=== PATIENT | female | born 1985 | race Caucasian/White ===

== ENCOUNTER 2017-05-24 13:57 | Emergency (ER) | payer SELFPAY ==
[2017-05-24] MEDS ORDERED: NA CHLORIDE 0.9% 1,000 ML ONE (14:53)
[2017-05-24 14:58] LABS: Absolute Lymphocytes (CBC) 1.4 K/uL (0.7-4.9); Absolute Monocytes 0.3 K/uL (0.1-1.3); Basophils % 0.7 % (0-1.3); Lymphocytes % 23.8 % (15.3-44.8); MCH 29.8 pg (27.0-35.0); MCV 91.8 fL (80-100); MPV 10.1 fL (7.6-11.3); Monocytes % 5.6 % (3.3-12.3); RBC Red Blood Cell Count 4.58 M/uL (3.86-4.86)
[2017-05-24 15:03] LABS: Potassium 4.8 mEq/L (3.6-5.0)
--- NOTE | 2017-05-24 15:47 | EDPHYS ---
Physician Documentation [facility] Name: Tamy Bradshaw Age: 31 yrs Sex: Female : 1985 Arrival Date: 05/24/2017 Time: 13:57 Bed 6 Private MD: ED Physician Micheal Encarnacion HPI: 05/24 15:41 This 31 yrs old Female presents to ER via Wheelchair with complaints of gs Seizure. 15:41 The patient presents after having a single isolated seizure. Character of seizure(s): gs Motor activity: focal activity, blank stare, Incontinence: none. Seizure onset: just prior to arrival. Seizure Hx: Last seizure: The patient's last seizure was approximately 1 month(s) ago. Current symptoms: Currently, the patient is not experiencing any symptoms. The patient has experienced similar episodes in the past, a few times. Historical: - Allergies: 14:15 NKA; ss - Home Meds: 14:15 None [Active]; ss - PMHx: 14:15 Seizures; ss - PSHx: 14:15 Cholecystectomy; D \T\ C; ss - Immunization history:: Adult Immunizations unknown. - Social history:: Smoking status: Patient uses tobacco products, smokes one-half pack cigarettes per day. ROS: 15:41 All other systems are negative. gs 15:47 Psych: Positive for anxiety, insomnia. gs Exam: 15:41 Head/Face: Normocephalic, atraumatic. Eyes: Pupils equal round and reactive to light, gs extra-ocular motions intact. Lids and lashes normal. Conjunctiva and sclera are non-icteric and not injected. Cornea within normal limits. Periorbital areas with no swelling, redness, or edema. Neck: Trachea midline, no thyromegaly or masses palpated, and no cervical lymphadenopathy. Supple, full range of motion without nuchal rigidity, or vertebral point tenderness. No Meningismus. Chest/axilla: Normal chest wall appearance and motion. Nontender with no deformity. No lesions are appreciated. Cardiovascular: Regular rate and rhythm with a normal S1 and S2. No gallops, murmurs, or rubs. Normal PMI, no JVD. No pulse deficits. Respiratory: Lungs have equal breath sounds bilaterally, clear to auscultation and percussion. No rales, rhonchi or wheezes noted. No increased work of breathing, no retractions or nasal flaring. Abdomen/GI: Soft, non-tender, with normal bowel sounds. No distension or tympany. No guarding or rebound. No evidence of tenderness throughout. Back: No spinal tenderness. No costovertebral tenderness. Full range of motion. Skin: Warm, dry with normal turgor. Normal color with no rashes, no lesions, and no evidence of cellulitis. MS/ Extremity: Pulses equal, no cyanosis. Neurovascular intact. Full, normal range of motion. Neuro: Awake and alert, GCS 15, oriented to person, place, time, and situation. Cranial nerves II-XII grossly intact. Motor strength 5/5 in all extremities. Sensory grossly intact. Cerebellar exam normal. Normal gait. 15:41 Constitutional: The patient appears alert, awake. 15:41 ENT: Mouth: Lips: healing laceration sutures in place. Vital Signs: 14:15 BP 109 / 67; Pulse 117; Resp 15; Temp 97.7(O); Pulse Ox 99% on R/A; Weight 70.31 kg; ss Height 5 ft. 11 in. (180.34 cm); Pain 0/10; 15:15 BP 110 / 68; Pulse 88; Resp 15; Pulse Ox 100% on R/A; Pain 0/10; hb 14:15 Body Mass Index 21.62 (70.31 kg, 180.34 cm) ss MDM: 14:23 Patient medically screened. 15:41 Differential diagnosis: drug overdose, cardiac arrhythmia, seizure. Data reviewed: vital signs, nurses notes. Response to treatment: the patient's symptoms have resolved after treatment, and as a result, I will discharge patient. 05/24 14:24 Order name: CBC with Diff 05/24 14:24 Order name: Basic Metabolic Panel 05/24 14:25 Order name: CBC with Automated Diff; Complete Time: 15:40 EDMS 05/24 14:25 Order name: Basic Metabolic Panel; Complete Time: 15:40 EDMS 05/24 15:49 Order name: EKG Electrocardiogram EDMS Administered Medications: 14:45 Drug: NS 0.9% 1000 ml Route: IV; Rate: 1 bolus; Site: right wrist; aj Disposition: 05/24/17 15:46 Discharged to Home. Impression: Epilepsy and recurrent seizures. - Condition is Stable. - Discharge Instructions: Seizure, Adult. - Prescriptions for Valium 5 mg Oral Tablet - take 1 tablet by ORAL route every 8 hours As needed; 10 tablet. - Medication Reconciliation Form, Thank You Letter, Antibiotic Education, Prescription Opioid Use form. - Follow up: Private Physician; When: 2 - 3 days; Reason: If symptoms return. Signatures: Dispatcher [employer] Lisa Beaulieu RN RN aj Smirch, Shelby, RN RN ss Baxter, Heather, RN RN hb Starr, Gregory, MD MD
--- NOTE | 2017-05-24 15:47 | ER ---
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 On arrival, pt is awake, drowsy. Pt reports a history of seizures, but does not take any medication. Transition of care: patient was not received from another setting of care. Onset of symptoms was May 24, 2017. Care prior to arrival: None. 14:14 Method Of Arrival: Wheelchair ss 14:14 Acuity: ASHLEY 3 ss Historical: - Allergies: 14:15 NKA; ss - Home Meds: 14:15 None [Active]; ss - PMHx: 14:15 Seizures; ss - PSHx: 14:15 Cholecystectomy; D \T\ C; ss - Immunization history:: Adult Immunizations unknown. - Social history:: Smoking status: Patient uses tobacco products, smokes one-half pack cigarettes per day. Screenin:45 Abuse screen: Denies threats or abuse. Denies injuries from another. Nutritional aj screening: No deficits noted. Tuberculosis screening: No symptoms or risk factors identified. Fall Risk None identified. Assessment: 14:45 General: Appears in no apparent distress. comfortable, Behavior is calm, cooperative, aj appropriate for age. Pain: Denies pain. Neuro: Level of Consciousness is awake, alert, obeys commands, Oriented to person, place, time, situation. Neuro: Seizure activity reported prior to arrival. Respiratory: Airway is patent Respiratory effort is even, unlabored, Respiratory pattern is regular, symmetrical. Derm: Skin is intact, is healthy with good turgor, Skin is pink, warm \T\ dry. normal. 15:45 Reassessment: Patient appears in no apparent distress at this time. Patient and/or hb family updated on plan of care and expected duration. Pain level reassessed. Patient is alert, oriented x 3, equal unlabored respirations, skin warm/dry/pink. Patient denies pain at this time. Patient states feeling better. Patient states symptoms have improved. Vital Signs: 14:15 BP 109 / 67; Pulse 117; Resp 15; Temp 97.7(O); Pulse Ox 99% on R/A; Weight 70.31 kg; Height 5 ft. 11 in. (180.34 cm); Pain 0/10; 15:15 BP 110 / 68; Pulse 88; Resp 15; Pulse Ox 100% on R/A; Pain 0/10; hb 14:15 Body Mass Index 21.62 (70.31 kg, 180.34 cm) ED Course: 13:57 Patient arrived in ED. as 14:07 Micheal Encarnacion MD is Attending Physician. 14:15 Triage completed. 14:15 Arm band placed on right wrist. 14:36 EKG done, by civil cad tech. reviewed by Micheal Encarnacion MD. 14:45 Lisa Reddy, RN is Primary Nurse. 14:45 Patient has correct armband on for positive identification. Bed in low position. Call aj light in reach. Side rails up X2. Seizure precautions initiated. 14:45 Inserted saline lock: 20 gauge in right wrist, using aseptic technique. 16:03 No provider procedures requiring assistance completed. IV discontinued, intact, hb bleeding controlled, No redness/swelling at site. Pressure dressing applied. Administered Medications: 14:45 Drug: NS 0.9% 1000 ml Route: IV; Rate: 1 bolus; Site: right wrist; Outcome: 15:46 Discharge ordered by . 16:03 Discharged to home ambulatory. hb 16:03 Condition: stable 16:03 Discharge instructions given to patient, Instructed on discharge instructions, follow up and referral plans. medication usage, Demonstrated understanding of instructions, follow-up care, medications, Prescriptions given X 1. 16:04 Patient left the ED. hb Signatures: Lisa Reddy, RN Radha Chen Shelby, RN RN Shira Turk Brooke Uribe RN RN Micheal Encarnacion MD MD
[2017-05-24 16:10] VITALS: TEMP 97.7
[2017-05-24 16:12] VITALS: BP 110/68; O2SAT 100
--- NOTE | 2017-05-25 06:08 | EKG ---
Test Date: 2017-05-24 Test Time: 14:30:10 Focus Puller: LACI MEASUREMENT RESULTS: Intervals: Rate: 100 FL: 128 QRSD: 80 QT: 356 QTc: 459 Standish: P: 79 FL: 128 QRS: 65 T: 56 INTERPRETIVE STATEMENTS: Normal sinus rhythm Normal ECG Compared to ECG 05/09/2017 11:36:29 No significant changes Electronically Signed On 05-25-17 06:06:44 CDT by Rafiq Fernandez
== END 2017-05-24 16:04 | disposition home or self-care (01) ==
LOC: ER 13:57
DX: G40.802 Other epilepsy, not intractable, without status epilepticus (principal); F41.9 Anxiety disorder, unspecified; F17.210 Nicotine dependence, cigarettes, uncomplicated
CPT/HCPCS: 36415; 80048; 85025; 93005; 99284; J7030

== ENCOUNTER 2017-06-02 13:07 | Emergency (ER) | payer SELFPAY ==
--- NOTE | 2017-06-02 13:30 | ER ---
Nurse's Notes [facility] Name: Tamy Bradshaw Age: 31 yrs Sex: Female : 1985 Arrival Date: 06/02/2017 Time: 13:08 Bed 5 Private MD: Diagnosis: Epilepsy and recurrent seizures Presentation: 06/02 13:09 Presenting complaint: EMS states: 2 witnessed seizures by boyfriend, unknown amount of sv time for each. Denies injuries or head injury. Hx of seizures. Transition of care: patient was not received from another setting of care. Onset of symptoms was June 02, 2017. Care prior to arrival: None. 13:09 Method Of Arrival: EMS: [facility] sv 13:09 Acuity: ASHLEY 3 sv Triage Assessment: 13:13 General: Appears in no apparent distress. comfortable, Behavior is cooperative, drowsy. sv Pain: Denies pain. EENT: No signs and/or symptoms were reported regarding the EENT system. Neuro: Level of Consciousness is obeys commands, lethargic, pt easily rousable.. Oriented to person, place, time, situation, Moves all extremities. Full function. Respiratory: Respiratory effort is even, unlabored, Respiratory pattern is regular, symmetrical. GI: No signs and/or symptoms were reported involving the gastrointestinal system. : No signs and/or symptoms were reported regarding the genitourinary system. Derm: Skin is pink, warm \T\ dry. Musculoskeletal: No signs and/or symptoms reported regarding the musculoskeletal system. Historical: - Allergies: 13:10 NKA; sv - Home Meds: 13:10 None [Active]; sv - PMHx: 13:10 Cholelithiasis; Seizures; sv - PSHx: 13:10 Cholecystectomy; D \T\ C; sv - Social history:: Smoking status: Patient/guardian denies using tobacco, Patient/guardian denies using alcohol, street drugs. Screenin:13 Abuse screen: Denies threats or abuse. Denies injuries from another. Nutritional sv screening: No deficits noted. Tuberculosis screening: No symptoms or risk factors identified. Fall Risk None identified. Assessment: 13:34 Reassessment: Patient appears in no apparent distress at this time. No changes from sv previously documented assessment. Patient and/or family updated on plan of care and expected duration. Pain level reassessed. Patient is alert, oriented x 3, equal unlabored respirations, skin warm/dry/pink. Vital Signs: 13:10 BP 124 / 86; Pulse 95; Resp 16; Temp 98.1(O); Pulse Ox 99% on R/A; sv Darcy Coma Score: 13:13 Eye Response: spontaneous(4). Verbal Response: oriented(5). Motor Response: obeys sv commands(6). Total: 15. ED Course: 13:08 Patient arrived in ED. sv 13:10 Triage completed. sv 13:12 Arm band placed on right wrist. sv 13:13 Patient has correct armband on for positive identification. Bed in low position. Call sv light in reach. Side rails up X2. Seizure precautions initiated. Pulse ox on. NIBP on. Door closed. Head of bed elevated. 13:14 Douglas Peralta PA is [facility]. jr8 13:14 Adair Bautista MD is Attending Physician. jr8 13:14 Kelsea Almodovar RN is Primary Nurse. sv 13:34 No provider procedures requiring assistance completed. Patient did not have IV access sv during this emergency room visit. Administered Medications: No medications were administered Outcome: 13:29 Discharge ordered by . jr8 13:34 Discharged to home ambulatory, with significant other. sv 13:34 Condition: stable 13:34 Discharge instructions given to patient, Instructed on discharge instructions, follow up and referral plans. no drinking with medication, no driving heavy equipment, medication usage, Demonstrated understanding of instructions, follow-up care, medications, Prescriptions given X 1. 13:34 Patient left the ED. sv Signatures: Kelsea Almodovar RN RN Douglas Peralta PA PA jr8
--- NOTE | 2017-06-02 13:30 | EDPHYS ---
Physician Documentation [facility] Name: Tamy Bradshaw Age: 31 yrs Sex: Female : 1985 Arrival Date: 06/02/2017 Time: 13:08 Bed 5 Private MD: ED Physician Adair Bautista HPI: 06/02 13:23 This 31 yrs old Female presents to ER via EMS with complaints of Seizure. jr8 13:23 The patient presents with a history of multiple seizures, a total of 2. Character of jr8 seizure(s): Motor activity: generalized. Seizure onset: today. Context: the seizure(s) was witnessed, by family, occurred at home. Associated injury: The patient did not suffer any apparent associated injury. Current symptoms: Currently, the patient is not experiencing any symptoms, the patient feels back to baseline, no decreased level of consciousness, no confusion, no dysphasia, no headache, no paralysis, no visual changes. The patient has experienced similar episodes in the past, multiple times. The patient has not recently seen a physician. Patient stated that she has been more stressed lately because she is currently in homeless half-way. Has not been sleeping as well either. Stated that this tends to trigger her seizures. Had two today. Came to ED because she cannot afford her shelter medications and was wondering if we can help . Historical: - Allergies: 13:10 NKA; sv - Home Meds: 13:10 None [Active]; sv - PMHx: 13:10 Cholelithiasis; Seizures; sv - PSHx: 13:10 Cholecystectomy; D \T\ C; sv - Social history:: Smoking status: Patient/guardian denies using tobacco, Patient/guardian denies using alcohol, street drugs. ROS: 13:23 Eyes: Negative for injury, pain, redness, and discharge, ENT: Negative for injury, jr8 pain, and discharge, Neck: Negative for injury, pain, and swelling, Cardiovascular: Negative for chest pain, palpitations, and edema, Respiratory: Negative for shortness of breath, cough, wheezing, and pleuritic chest pain, Abdomen/GI: Negative for abdominal pain, nausea, vomiting, diarrhea, and constipation, Back: Negative for injury and pain, MS/Extremity: Negative for injury and deformity, Skin: Negative for injury, rash, and discoloration. 13:23 Neuro: Positive for seizure activity, Negative for altered mental status, dizziness, gait disturbance, headache, hearing loss, loss of consciousness, numbness, speech changes, syncope, near syncope, tingling, tinnitus, tremor, visual changes, weakness. Exam: 13:23 Eyes: Pupils equal round and reactive to light, extra-ocular motions intact. Lids and jr8 lashes normal. Conjunctiva and sclera are non-icteric and not injected. Cornea within normal limits. Periorbital areas with no swelling, redness, or edema. ENT: Nares patent. No nasal discharge, no septal abnormalities noted. Tympanic membranes are normal and external auditory canals are clear. Oropharynx with no redness, swelling, or masses, exudates, or evidence of obstruction, uvula midline. Mucous membranes moist. Neck: Trachea midline, no thyromegaly or masses palpated, and no cervical lymphadenopathy. Supple, full range of motion without nuchal rigidity, or vertebral point tenderness. No Meningismus. Cardiovascular: Regular rate and rhythm with a normal S1 and S2. No gallops, murmurs, or rubs. Normal PMI, no JVD. No pulse deficits. Respiratory: Lungs have equal breath sounds bilaterally, clear to auscultation and percussion. No rales, rhonchi or wheezes noted. No increased work of breathing, no retractions or nasal flaring. Abdomen/GI: Soft, non-tender, with normal bowel sounds. No distension or tympany. No guarding or rebound. No evidence of tenderness throughout. Back: No spinal tenderness. No costovertebral tenderness. Full range of motion. Skin: Warm, dry with normal turgor. Normal color with no rashes, no lesions, and no evidence of cellulitis. MS/ Extremity: Pulses equal, no cyanosis. Neurovascular intact. Full, normal range of motion. Neuro: Awake and alert, GCS 15, oriented to person, place, time, and situation. Cranial nerves II-XII grossly intact. Motor strength 5/5 in all extremities. Sensory grossly intact. Cerebellar exam normal. Normal gait. Vital Signs: 13:10 BP 124 / 86; Pulse 95; Resp 16; Temp 98.1(O); Pulse Ox 99% on R/A; sv Darcy Coma Score: 13:13 Eye Response: spontaneous(4). Verbal Response: oriented(5). Motor Response: obeys sv commands(6). Total: 15. MDM: 13:14 Patient medically screened. jr8 13:23 Data reviewed: vital signs, nurses notes, and as a result, I will discharge patient. jr8 Data interpreted: Pulse oximetry: on room air is 99 %. Interpretation: normal. Counseling: I had a detailed discussion with the patient and/or guardian regarding: the historical points, exam findings, and any diagnostic results supporting the discharge/admit diagnosis, the need for outpatient follow up, a family practitioner, a neurologist, to return to the emergency department if symptoms worsen or persist or if there are any questions or concerns that arise at home. ED course: Patient without seizures while in ED. Vitals are normal. No acute distress. No acute findings on physical exam.Stated that she does not have the time to get labs done. Cannot miss the bus to get back to [employer] . Administered Medications: No medications were administered Disposition: 06/02/17 13:29 Discharged to Home. Impression: Epilepsy and recurrent seizures. - Condition is Stable. - Discharge Instructions: Seizure, Adult. - Prescriptions for Ativan 0.5 mg Oral Tablet - take 1 tablet by ORAL route every 8 hours As needed; 20 tablet. - Medication Reconciliation Form, Thank You Letter, Antibiotic Education, Prescription Opioid Use form. - Follow up: Private Physician; When: 1 - 2 days; Reason: Recheck today's complaints, Continuance of care, Re-evaluation by your physician. - Problem is new. - Symptoms have improved. Addendum: 06/04/2017 07:30 Co-signature as Attending Physician, Adair Bautista MD I agree with the assessment and w a plan of care. Signatures: Kelsea Almodovar, RN RN Dougals Guthrie PA PA jr8 Adair Bautista MD MD sc
[2017-06-02 13:39] VITALS: BP 124/86; TEMP 98.1; O2SAT 99
== END 2017-06-02 13:34 | disposition home or self-care (01) ==
LOC: ER 13:07
DX: G40.802 Other epilepsy, not intractable, without status epilepticus (principal)
CPT/HCPCS: 99283

== ENCOUNTER 2017-06-02 22:42 | Emergency (ER) | payer SELFPAY ==
[2017-06-02] MEDS ORDERED: LEVETIRACETAM 500 MG/5 ML VIAL IV ONE (23:28)
[2017-06-02] MEDS ORDERED: LIDOCAINE 1% W/EPI 1:100,000 MDV 50 ML VIAL ONE (23:29)
[2017-06-02] MEDS ORDERED: NA CHLORIDE 0.9% 100 ML IV ONE (23:43)
[2017-06-03] MEDS ORDERED: NA CHLORIDE 0.9% 100 ML IV ONE (00:13)
[2017-06-03 00:17] LABS: Protime INR 0.96
[2017-06-03 00:21] LABS: Absolute Lymphocytes (CBC) 1.9 K/uL (0.7-4.9); Absolute Monocytes 0.6 K/uL (0.1-1.3); Absolute Neutrophil 8.7 K/uL (1.8-8.0); Basophils % 0.8 % (0-1.3); Eosinophils % 2.1 % (0-4.4); Hematocrit 40.7 % (36.0-45.0); Lymphocytes % 16.8 % (15.3-44.8); MCV 91.1 fL (80-100); MPV 10.2 fL (7.6-11.3); Monocytes % 5.4 % (3.3-12.3); RBC Red Blood Cell Count 4.46 M/uL (3.86-4.86)
[2017-06-03] MEDS ORDERED: NA CHLORIDE 0.9% 1,000 ML ONE (00:24)
[2017-06-03 00:38] LABS: Bicarbonate 27 mEq/L (21-31); Glucose Level 93 mg/dL (65-120); Potassium 4.1 mEq/L (3.6-5.0); Sodium Level 137 mEq/L (135-145)
[2017-06-03 00:44] LABS: ALT/SGPT 41 IU/L (10-60); AST/SGOT 34 IU/L (10-42); Albumin 3.9 g/dL (3.2-5.5); Alkaline Phosphatase 57 IU/L (42-121); BUN Blood Urea Nitrogen 11 mg/dL (6-20); Bilirubin Direct < 0.1 mg/dL (0-0.2); Bilirubin Total 0.3 mg/dL (0.3-1.2); Glomerular Filtration Rate 90 mL/min (=/>90); Protein, Total 7.1 g/dL (6.0-8.3)
--- NOTE | 2017-06-03 00:50 | EDPHYS ---
Physician Documentation [facility] Name: Tamy Bradshaw Age: 31 yrs Sex: Female : 1985 Arrival Date: 06/02/2017 Time: 22:49 Bed 27 Private MD: ED Physician Yunier Couch HPI: 06/03 00:38 This 31 yrs old Female presents to ER via EMS with complaints of Probable snw Seizure, Laceration To Scalp/Face. 00:38 The patient presents after having a single isolated seizure, that lasted 3 minute(s). snw Character of seizure(s): Loss of consciousness: it is not known if the patient experienced loss of consciousness, Motor activity: generalized, Incontinence: none, Apnea: the patient did not experience apnea, Circulation: the patient did not experience evidence of pulse disturbance, Eye movements: twitching. Seizure onset: just prior to arrival, today. Context: the seizure(s) was witnessed, by a friend, occurred homeless senior living, occurred while the patient was standing. Seizure Hx: Last seizure: The patient's last seizure this is pt's third seizure today, Seizure medications: pt states Topamax works best for her but she cannot afford medications.. Associated injury: Head/face: left cheek, left eye and left faith, contusion, pain, swelling, tenderness. EMS care: supplemental oxygen. Current symptoms: headache, generalized body pain. The patient has experienced similar episodes in the past, multiple times. The patient has been recently seen by a physician: The patient has been recently seen at the [facility] Emergency Department, today, for similar complaints given Rx for ativan, did not get it filled. FERRYBOAT DECKHAND: 06/02 23:02 LMP N/A - Irregular menses lk1 Historical: - Allergies: 22:57 NKA; lk1 - PMHx: 22:57 Cholelithiasis; Seizures; lk1 - PSHx: 22:57 D \T\ C; Cholecystectomy; lk1 - Immunization history:: Adult Immunizations up to date. - Social history:: Smoking status: Patient uses tobacco products, smokes one-half pack cigarettes per day. ROS: 06/03 00:36 Constitutional: Negative for fever, chills, and weight loss, ENT: Negative for injury, snw pain, and discharge, bit tip of tongue, no bleeding Neck: Negative for injury, pain, and swelling, Cardiovascular: Negative for chest pain, palpitations, and edema, Respiratory: Negative for shortness of breath, cough, wheezing, and pleuritic chest pain, Abdomen/GI: Negative for abdominal pain, nausea, vomiting, diarrhea, and constipation, Back: Negative for injury and pain, : Negative for injury, bleeding, discharge, and swelling, MS/Extremity: Negative for injury and deformity, Skin: Negative for injury, rash, and discoloration. Eyes: Positive for pain, swelling, laceration to lateral upper cheek, lateral left eyelid. Neuro: Positive for seizure activity, generalized soreness. Exam: 00:33 Constitutional: This is a well developed, well nourished patient who is awake, alert, snw and in no acute distress. Eyes: Pupils equal round and reactive to light, extra-ocular motions intact. Lids and lashes normal. Conjunctiva and sclera are non-icteric and not injected. Cornea within normal limits. Periorbital areas with no swelling, redness, or edema. ENT: Nares patent. No nasal discharge, no septal abnormalities noted. Tympanic membranes are normal and external auditory canals are clear. Oropharynx with no redness, swelling, or masses, exudates, or evidence of obstruction, uvula midline. Mucous membranes moist. Neck: Trachea midline, no thyromegaly or masses palpated, and no cervical lymphadenopathy. Supple, full range of motion without nuchal rigidity, or vertebral point tenderness. No Meningismus. Chest/axilla: Normal chest wall appearance and motion. Nontender with no deformity. No lesions are appreciated. Cardiovascular: Regular rate and rhythm with a normal S1 and S2. No gallops, murmurs, or rubs. Normal PMI, no JVD. No pulse deficits. Respiratory: Lungs have equal breath sounds bilaterally, clear to auscultation and percussion. No rales, rhonchi or wheezes noted. No increased work of breathing, no retractions or nasal flaring. Abdomen/GI: Soft, non-tender, with normal bowel sounds. No distension or tympany. No guarding or rebound. No evidence of tenderness throughout. Back: No spinal tenderness. No costovertebral tenderness. Full range of motion. MS/ Extremity: Pulses equal, no cyanosis. Neurovascular intact. Full, normal range of motion. Psych: Awake, alert, with orientation to person, place and time. Behavior, mood, and affect are within normal limits. 00:33 Head/face: Noted is a laceration(s), that is deep, that is jagged, of the curved laceration to left lateral cheek up to left lateral eyelid, + muscle involvement, swelling, that is moderate, that is severe, of the left eye. 00:33 Eyes: Periorbital structures: as noted above. Vital Signs: 06/02 23:02 BP 110 / 71; Pulse 92; Resp 16; Temp 98.6(O); Pulse Ox 100% on R/A; Weight 79.38 kg lk1 (R); Height 5 ft. 11 in. (180.34 cm) (R); Pain 9/10; 06/03 00:00 BP 111 / 73; Pulse 94; Resp 16; Pulse Ox 100% on R/A; lk1 06/02 23:02 Body Mass Index 24.41 (79.38 kg, 180.34 cm) lk1 Darcy Coma Score: 06/02 22:58 Eye Response: spontaneous(4). Verbal Response: oriented(5). Motor Response: obeys lk1 commands(6). Total: 15. Laceration: 06/03 00:59 Wound Repair of 4cm ( 1.6in ) subcutaneous laceration to left faith. Irregularly snw shaped.. Distal neuro/vascular/tendon intact. Anesthesia: Local anesthetic administered with 1% lidocaine w/ Epi. Wound prep: Extensive cleansing with hibiclenz by me, Wound explored, Copious irrigation. Skin closed with 2 5-0 chromic using simple sutures and sterile technique. Skin closed with 7 5-0 Prolene using simple sutures and sterile technique. Dressed with Neosporin. Patient tolerated well. MDM: 06/02 22:56 Patient medically screened. [facility] 06/03 00:58 Data reviewed: vital signs, nurses notes, lab test result(s), radiologic studies. Data snw interpreted: Pulse oximetry: on room air is 100 %. Interpretation: normal. Counseling: I had a detailed discussion with the patient and/or guardian regarding: the historical points, exam findings, and any diagnostic results supporting the discharge/admit diagnosis, lab results, the need for outpatient follow up, to return to the emergency department if symptoms worsen or persist or if there are any questions or concerns that arise at home. Special discussion: Based on the patient's history, exam and DX evaluation, there is no indication for emergent intervention or inpatient TX. It is understood by the patient/guardian that if the SXs persist or worsen they need to return immediately for re-evaluation. Based on the history and exam findings, there is no indication for further emergent testing or inpatient evaluation. I discussed with the patient/guardian the need to see the primary care provider for further evaluation of the symptoms. 06/02 23:18 Order name: Acetaminophen; Complete Time: 02:12 snw 06/02 23:18 Order name: Basic Metabolic Panel; Complete Time: 02:12 snw 06/02 23:18 Order name: CBC with Diff; Complete Time: 00:32 snw 06/02 23:18 Order name: ETOH Level; Complete Time: 02:12 snw 06/02 23:18 Order name: Hepatic Function; Complete Time: 02:12 snw 06/02 23:18 Order name: PT-INR; Complete Time: 00:51 snw 06/02 23:18 Order name: CT Head C Spine snw 06/02 23:18 Order name: Ptt, Activated; Complete Time: 00:51 snw 06/02 23:18 Order name: Salicylate; Complete Time: 02:12 snw 06/02 23:18 Order name: Urine Drug Screen; Complete Time: 02:12 snw 06/02 23:18 Order name: Test, Serum; Complete Time: 02:12 snw 06/03 01:22 Order name: Urine Dipstick--Ancillary (enter results); Complete Time: 02:12 em1 06/02 23:18 Order name: EKG; Complete Time: 23:19 snw 06/02 23:18 Order name: EKG - Nurse/Tech; Complete Time: 02:04 snw 06/02 23:18 Order name: IV Saline Lock; Complete Time: 00:35 snw 06/02 23:18 Order name: Labs collected and sent; Complete Time: 00:35 snw 06/02 23:18 Order name: Urine Dipstick-Ancillary (obtain specimen); Complete Time: 00:35 snw 06/02 23:21 Order name: Suture Tray Setup; Complete Time: 00:19 snw Administered Medications: 00:05 Not Given (Patient Refused): Keppra 1000 mg IV at calculated rate once lk1 00:17 Drug: Phenytoin 1 grams Route: IVPB; Site: right antecubital; lk1 01:42 Follow up: Response: No adverse reaction; IV Status: Completed infusion lk1 00:19 Drug: Lidocaine-Epinephrine -1%: (1:100,000) 1 vials {Note: used by BINDERY WORKER at bedside .} lk1 Volume: 20 ml; Route: Infiltration; 00:30 Follow up: Response: No adverse reaction lk1 00:30 Drug: NS 0.9% 1000 ml Route: IV; Rate: 1 bolus; Site: right antecubital; lk1 01:42 Follow up: Response: No adverse reaction; IV Status: Completed infusion lk1 01:25 Drug: fentaNYL (PF) 50 mcg Route: IM; Site: left gluteus; lk1 01:41 Follow up: Response: No adverse reaction lk1 01:40 Drug: Topamax 200 mg Route: PO; lk1 01:42 Follow up: Response: Medication administered at discharge. lk1 01:43 Not Given (Patient Refused): Tetanus-Diphtheria Toxoid Adult 0.5 ml IM once lk1 Disposition: 06/03/17 00:49 Discharged to Home. Impression: Epileptic seizures related to external causes, not intractable, Patient's intentional underdosing of medication regimen due to financial hardship, Laceration without foreign body of unspecified part of head - face, Other and unspecified injuries of head. - Condition is Stable. - Discharge Instructions: Facial or Scalp Contusion, Facial Laceration, Medicine Refill at the Emergency Department, Seizure, Adult, Suture Removal, Care After, Sutured Wound Care. - Prescriptions for topiramate 100 mg Oral tablet - take 1 tablet by ORAL route 2 times per day; 60 tablet. - Medication Reconciliation Form, Thank You Letter, Antibiotic Education, Prescription Opioid Use form. - Follow up: Private Physician; When: 2 - 3 days; Reason: Recheck today's complaints, Continuance of care, Re-evaluation by your physician. Follow up: Emergency Department; When: As needed; Reason: Worsening of condition, Staple/Suture removal. Signatures: Dispatcher [employer] Yunier Coon MD MD cha Therrien, Shelly, ECHOCARDIOGRAPHY TECH-C ECHOCARDIOGRAPHY TECH-Csnw Roshni Lau, RN RN lk1 Alf Dawn, RN RN ao
--- NOTE | 2017-06-03 00:50 | ER ---
Nurse's Notes [facility] Name: Tamy Bradshaw Age: 31 yrs Sex: Female : 1985 Arrival Date: 06/02/2017 Time: 22:49 Bed 27 Private MD: Diagnosis: Epileptic seizures related to external causes, not intractable;Patient's intentional underdosing of medication regimen due to financial hardship;Laceration without foreign body of unspecified part of head-face;Other and unspecified injuries of head Presentation: 06/02 22:55 Presenting complaint: Significant other states: "We could not afford the medicine we lk1 got when we were here earlier today. She didn't take it and now she had a seizure for 5 minutes or more. She was turning blue and she hit her head really hard.". Transition of care: patient was not received from another setting of care. Onset of symptoms was June 02, 2017 at 22:00. Care prior to arrival: bandaging to head wound. 22:55 Method Of Arrival: EMS: [facility] lk 22:55 Acuity: ASHLEY 3 lk1 Triage Assessment: 22:58 General: Appears in no apparent distress. Behavior is calm, cooperative, appropriate lk1 for age. Pain: Complains of pain in left eye and head Pain currently is 9 out of 10 on a pain scale. EENT: Lid(s) swelling and purple bruising in left upper and lower eye lids. Neuro: Level of Consciousness is awake, alert, obeys commands, Oriented to person, place, time, situation, Speech is normal, Facial symmetry appears normal. Cardiovascular: Capillary refill is brisk Patient's skin is warm and dry. Respiratory: Airway is patent Respiratory effort is even, unlabored, Respiratory pattern is regular, symmetrical. GI: Abdomen is non-distended. : No signs and/or symptoms were reported regarding the genitourinary system. Derm: No signs and/or symptoms reported regarding the dermatologic system. Musculoskeletal: No signs and/or symptoms reported regarding the musculoskeletal system. PORTER USED CAR LOT: 23:02 LMP N/A - Irregular menses lk1 Historical: - Allergies: 22:57 NKA; lk1 - PMHx: 22:57 Cholelithiasis; Seizures; lk1 - PSHx: 22:57 D \\T\\ C; Cholecystectomy; lk1 - Immunization history:: Adult Immunizations up to date. - Social history:: Smoking status: Patient uses tobacco products, smokes one-half pack cigarettes per day. Screenin/12 01:44 Abuse screen: Denies threats or abuse. Denies injuries from another. Nutritional lk1 screening: No deficits noted. Tuberculosis screening: No symptoms or risk factors identified. Fall Risk Total Chand Fall Scale indicates High Risk Score (45 or more points). Fall prevention measures have been instituted. Side Rails Up X 2 Placed Close to Nursing Station Frequent Obs/Assessments Occuring Family Present and informed to notify staff if the need to leave the bedside As available patient and family educated on Fall Prevention Program and Strategies. Assessment: 00:00 Reassessment: Patient appears in no apparent distress at this time. No changes from lk1 previously documented assessment. Patient and/or family updated on plan of care and expected duration. Pain level reassessed. Patient is alert, oriented x 3, equal unlabored respirations, skin warm/dry/pink. 01:40 Reassessment: patient refused tetanus shot, states she is up to date. lk1 Vital Signs: 06/02 23:02 BP 110 / 71; Pulse 92; Resp 16; Temp 98.6(O); Pulse Ox 100% on R/A; Weight 79.38 kg lk1 (R); Height 5 ft. 11 in. (180.34 cm) (R); Pain 9/10; 06/03 00:00 BP 111 / 73; Pulse 94; Resp 16; Pulse Ox 100% on R/A; lk1 06/02 23:02 Body Mass Index 24.41 (79.38 kg, 180.34 cm) lk1 Madison Coma Score: 06/02 22:58 Eye Response: spontaneous(4). Verbal Response: oriented(5). Motor Response: obeys lk1 commands(6). Total: 15. ED Course: 22:49 Patient arrived in ED. em1 22:54 Roshni Lau, JOLANTA is Primary Nurse. lk1 22:55 Jos[facility]ed [facility]-C [facility] snw 22:55 Yunier Couch MD is Attending Physician. snw 22:57 Triage completed. lk1 23:04 Arm band placed on right wrist. lk1 23:44 CT Head C Spine In Process Unspecified. EDMS 06/03 01:45 Patient has correct armband on for positive identification. Bed in low position. Call lk1 light in reach. Side rails up X2. 02:04 No provider procedures requiring assistance completed. IV discontinued, intact, ao bleeding controlled, No redness/swelling at site. Pressure dressing applied. 02:05 Seizure precautions initiated. ao Administered Medications: 00:05 Not Given (Patient Refused): Keppra 1000 mg IV at calculated rate once lk1 00:17 Drug: Phenytoin 1 grams Route: IVPB; Site: right antecubital; lk1 01:42 Follow up: Response: No adverse reaction; IV Status: Completed infusion lk1 00:19 Drug: Lidocaine-Epinephrine -1%: (1:100,000) 1 vials {Note: used by ADOBE MAKER at bedside .} lk1 Volume: 20 ml; Route: Infiltration; 00:30 Follow up: Response: No adverse reaction lk1 00:30 Drug: NS 0.9% 1000 ml Route: IV; Rate: 1 bolus; Site: right antecubital; lk1 01:42 Follow up: Response: No adverse reaction; IV Status: Completed infusion lk1 01:25 Drug: fentaNYL (PF) 50 mcg Route: IM; Site: left gluteus; lk1 01:41 Follow up: Response: No adverse reaction lk1 01:40 Drug: Topamax 200 mg Route: PO; lk1 01:42 Follow up: Response: Medication administered at discharge. lk1 01:43 Not Given (Patient Refused): Tetanus-Diphtheria Toxoid Adult 0.5 ml IM once lk1 Outcome: 00:49 Discharge ordered by . snw 02:05 Discharged to home via wheelchair. ao 02:05 Condition: stable 02:05 Discharge instructions given to patient, consumer affairs director, Instructed on discharge instructions, follow up and referral plans. Demonstrated understanding of instructions, follow-up care, medications, wound care, Prescriptions given X 1. 02:27 Patient left the ED. ao Signatures: Dispatcher [employer] EDMN Joselyn Hameed, PHOTOCOPIER TECHNICIANAlinaC PHOTOCOPIER TECHNICIAN-Vincenzo Barrios em1 Roshni Lau, RN RN lk1 Alf Dawn RN RN ao
[2017-06-03] MEDS ORDERED: FENTANYL CITR 100 MCG/2 ML ONE (01:17)
[2017-06-03] MEDS ORDERED: TETANUS & DIPHTHERIA TOX,ADULT 0.5 ML VIAL ONE (01:18)
[2017-06-03 01:23] LABS: Barbiturates NEGATIVE; Benzodiazepines POSITIVE; Cocaine NEGATIVE; METHAMPHETAM NEGATIVE; Opiates NEGATIVE; Phencyclidine NEGATIVE; THC Cannibis NEGATIVE
[2017-06-03] MEDS ORDERED: TOPIRAMATE 25 MG TAB ONE (01:26)
[2017-06-03 01:59] LABS: Urine Blood NEGATIVE (NEG); Urine Glucose NEGATIVE (NEG); Urine Protein NEGATIVE (NEG); Urine Specific Gravity >1.030 (1.005-1.030)
[2017-06-03 01:59] LABS: Alcohol Serum/Plasma < 10 mg/dl; Salicylates Level < 4.0 mg/dl (<30)
[2017-06-03 02:40] VITALS: TEMP 98.6; O2SAT 100
[2017-06-03 02:42] VITALS: BP 111/73
--- NOTE | 2017-06-03 08:49 | RAD REPORT ---
EXAM DESCRIPTION: CT - Head C Spine Mpr Wo Con - 06/03/2017 6:45 am CLINICAL HISTORY: Head and neck injury status post fall. Head and neck pain. Seizure COMPARISON: April 2017 TECHNIQUE: Computed axial tomography of the head and cervical spine was obtained. Sagittal and coronal reconstruction was performed.A preliminary report was generated by [employer] and reviewed prior to dictation All CT scans are performed using dose optimization technique as appropriate and may include automated exposure control or mA/KV adjustment according to patient size. FINDINGS: Left preseptal hematoma is present. An intracranial bleed is not seen. The ventricles are normal in caliber. An extra-axial fluid collect ion is not noted.Fluid within the visualized sinuses and mastoids is not seen A cervical fracture is not visualized. No dislocation is noted. IMPRESSION: No acute intracranial abnormality is seen. A cervical fracture is not visualized. If the patient continues to have symptoms to suggest intracra nial /spinal cord pathology then MRI would be recommended
== END 2017-06-03 02:27 | disposition home or self-care (01) ==
LOC: ER 22:42
PROC: 0JQ10ZZ Repair Face Subcutaneous Tissue and Fascia, Open Approach (ICD-10-PCS; principal; 2017-06-03)
DX: S01.81XA Laceration without foreign body of other part of head, initial encounter (principal); S09.90XA Unspecified injury of head, initial encounter; W18.30XA Fall on same level, unspecified, initial encounter; Y93.9 Activity, unspecified; Y92.198 Other place in other specified residential institution as the place of occurrence of the external cause; T50.996A Underdosing of other drugs, medicaments and biological substances, initial encounter; Z91.120 Patient's intentional underdosing of medication regimen due to financial hardship; F17.210 Nicotine dependence, cigarettes, uncomplicated
CPT/HCPCS: 36415; 70450; 72125; 80048; 80076; 80307; 80320; 80329; 81003; 84703; 85025; 85610; 85730; 90714; 96365; 96372; 99284; J1165; J1953; J3010; J7030

== ENCOUNTER 2017-06-22 16:28 | Emergency (ER) | payer SELFPAY ==
--- NOTE | 2017-06-22 16:39 | EDPHYS ---
Physician Documentation [facility] Name: Tamy Bradshaw Age: 31 yrs Sex: Female : 1985 Arrival Date: 06/22/2017 Time: 16:37 Bed 28 Private MD: ED Physician Smita Kelly HPI: 06/22 16:44 This 31 yrs old Female presents to ER via EMS with complaints of seizure. kb 16:44 The patient presents with a history of multiple seizures, an unknown number. Character kb of seizure(s): Motor activity: generalized, shaking all over. Seizure onset: just prior to arrival. Context: the seizure(s) was witnessed, by a friend, occurred at home, Contributing factors: hasn't taken meds in a while. Seizure Hx: Original onset: longstanding. Associated injury: The patient did not suffer any apparent associated injury. EMS care: none. Current symptoms: Currently, the patient is not experiencing any symptoms, the patient feels back to baseline, no decreased level of consciousness, no confusion, no dysphasia, no headache, no paralysis, no visual changes. The patient has experienced similar episodes in the past, chronically. The patient has not recently seen a physician. Pt states she had a seizure and someone called 911. EMS reports pt was postictal when they arrived, A\T\OX2. Now pt A\T\OX3, no complaints. States she feels the same as she normally does when she has a seizure. States she wants the phone so she can call her boyfriend to come get her. States she needs to go home, does not need to be at the hospital. Offered diagnostic testing, pt refused. . Historical: - Allergies: 16:43 NKA; aj1 - Home Meds: 16:43 None [Active]; aj1 - PMHx: 16:43 Cholelithiasis; Seizures; aj1 - PSHx: 16:43 None; aj1 ROS: 16:44 Constitutional: Negative for fever, chills, and weight loss, Cardiovascular: Negative kb for chest pain, palpitations, and edema, Respiratory: Negative for shortness of breath, cough, wheezing, and pleuritic chest pain, Abdomen/GI: Negative for abdominal pain, nausea, vomiting, diarrhea, and constipation, Back: Negative for injury and pain, : Negative for injury, bleeding, discharge, and swelling, MS/Extremity: Negative for injury and deformity, Skin: Negative for injury, rash, and discoloration. 16:44 Neuro: Positive for seizure activity. Exam: 16:44 Constitutional: This is a well developed, well nourished patient who is awake, alert, kb and in no acute distress. Head/Face: Normocephalic, atraumatic. Neck: Trachea midline, no thyromegaly or masses palpated, and no cervical lymphadenopathy. Supple, full range of motion without nuchal rigidity, or vertebral point tenderness. No Meningismus. Chest/axilla: Normal chest wall appearance and motion. Nontender with no deformity. No lesions are appreciated. Cardiovascular: Regular rate and rhythm with a normal S1 and S2. No gallops, murmurs, or rubs. Normal PMI, no JVD. No pulse deficits. Respiratory: Lungs have equal breath sounds bilaterally, clear to auscultation and percussion. No rales, rhonchi or wheezes noted. No increased work of breathing, no retractions or nasal flaring. Abdomen/GI: Soft, non-tender, with normal bowel sounds. No distension or tympany. No guarding or rebound. No evidence of tenderness throughout. Skin: Warm, dry with normal turgor. Normal color with no rashes, no lesions, and no evidence of cellulitis. MS/ Extremity: Pulses equal, no cyanosis. Neurovascular intact. Full, normal range of motion. Neuro: Awake and alert, GCS 15, oriented to person, place, time, and situation. Cranial nerves II-XII grossly intact. Motor strength 5/5 in all extremities. Sensory grossly intact. Cerebellar exam normal. Normal gait. MDM: 16:38 Patient medically screened. kb 16:49 Data reviewed: vital signs, nurses notes. Data interpreted: Pulse oximetry: on room air kb is 100 %. Interpretation: normal. Counseling: I had a detailed discussion with the patient and/or guardian regarding: the historical points, exam findings, and any diagnostic results supporting the discharge/admit diagnosis, the need for outpatient follow up, a family practitioner, to return to the emergency department if symptoms worsen or persist or if there are any questions or concerns that arise at home. 16:49 Refusal of service: The patient/guardian displays adequate decision making capability kb and despite a detailed discussion of alternatives, benefits, risks, and consequences refuses: CT Scan, all lab tests, Medications. Administered Medications: No medications were administered Disposition: 06/22/17 16:38 Patient has left against medical advice. Impression: Epilepsy and recurrent seizures. - Patients states they are going to Home. - Condition is Stable. Follow up: Emergency Department; When: As needed; Reason: Worsening of condition. Follow up: Private Physician; When: 2 - 3 days; Reason: Recheck today's complaints, Continuance of care, Re-evaluation by your physician. - Problem is an acute exacerbation. - Symptoms are resolved. Addendum: 06/27/2017 19:51 Co-signature as Attending Physician, Smita Kelly MD. m a2 Signatures: Graciela Salazar FNP-C FNP-Patricia Sarmiento RN RN aj1 Smita Kelly MD MD ma2 Corrections: (The following items were deleted from the chart) 06/22 16:44 16:38 06/22/2017 16:38 Patients has left against medical advice. Impression: Epilepsy aj1 and recurrent seizures. Patient states they are going to Home. Condition is Stable. Follow up: Emergency Department; When: As needed; Reason: Worsening of condition. Follow up: Private Physician; When: 2 - 3 days; Reason: Recheck today's complaints, Continuance of care, Re-evaluation by your physician. Problem is an acute exacerbation. Symptoms are resolved. kb
--- NOTE | 2017-06-22 16:45 | ER ---
Nurse's Notes [facility] Name: Tamy Bradshaw Age: 31 yrs Sex: Female : 1985 Arrival Date: 06/22/2017 Time: 16:37 Bed 28 Private MD: Diagnosis: Epilepsy and recurrent seizures Presentation: 06/22 16:39 Presenting complaint: EMS states: Patient was with friends who report that she has had aj1 "a few" seizures over the last few hours each lasting 3 to 5 minutes. Patient was post-ictal on EMS arrival, currently alert and oriented x3. FSBS 88 by EMS. Patient states over and over that she needs a phone to call her boyfriend to pick her up. Patient refuses to answer questions or allow us to obtain vital signs until she has called her boyfriend because he has her kids. Patient provided a phone and talks to her boyfriend, after which she states she is leaving. Chapin Salazar PLATE PAINTER at bedside to explain risks of leaving AMA. Patient verbalizes understanding and agrees to sign AMA form. Transition of care: patient was not received from another setting of care. Onset of symptoms was June 22, 2017. Initial Sepsis Screen: Does the patient meet any 2 criteria? No. Patient's initial sepsis screen is negative. Does the patient have a suspected source of infection? No. Patient's initial sepsis screen is negative. Care prior to arrival: Glucose check: 88. 16:39 Method Of Arrival: EMS: [facility] aj1 16:39 Acuity: ASHLEY 3 aj1 Triage Assessment: 16:43 General: Appears in no apparent distress. comfortable, Behavior is calm, appropriate aj1 for age. Neuro: Level of Consciousness is awake, alert, obeys commands. Historical: - Allergies: 16:43 NKA; aj1 - Home Meds: 16:43 None [Active]; aj1 - PMHx: 16:43 Cholelithiasis; Seizures; aj1 - PSHx: 16:43 None; aj1 ED Course: 16:37 Patient arrived in ED. ss 16:38 Graciela Salazar FNP-C is PHCP. kb 16:38 Smita Kelly MD is Attending Physician. kb 16:42 Triage completed. aj1 Administered Medications: No medications were administered Outcome: 16:43 AMA AMA form signed aj1 16:43 Condition: unchanged 16:43 Instructed on risks of leaving AMA Demonstrated understanding of instructions. 16:44 Patient left the ED. aj1 Signatures: Graciela Salazar FNP-C FNP-Patricia Sarmiento RN RN aj1 Luisa Lan RN RN ss
== END 2017-06-22 16:44 | disposition left against medical advice (07) ==
LOC: ER 16:28
DX: G40.109 Localization-related (focal) (partial) symptomatic epilepsy and epileptic syndromes with simple partial seizures, not intractable, without status epilepticus (principal); Z53.21 Procedure and treatment not carried out due to patient leaving prior to being seen by health care provider
CPT/HCPCS: 99282

== ENCOUNTER 2017-06-22 20:07 | Emergency (ER) | payer SELFPAY ==
--- NOTE | 2017-06-22 21:19 | ER ---
Nurse's Notes [facility] Name: Tamy Bradshaw Age: 31 yrs Sex: Female : 1985 Arrival Date: 06/22/2017 Time: 20:13 Bed 15 Private MD: Diagnosis: Epilepsy and recurrent seizures Presentation: 06/22 20:29 Presenting complaint: Patient states: "I have seizures and was here earlier. I left and lk1 I had a seizure so I came back. I don't take my medicine because I don't have the money.". Presenting complaint:. Transition of care: patient was not received from another setting of care. Onset of symptoms was June 22, 2017 at 19:30. Initial Sepsis Screen: Does the patient meet any 2 criteria? No. Patient's initial sepsis screen is negative. Does the patient have a suspected source of infection? No. Patient's initial sepsis screen is negative. Care prior to arrival: None. 20:29 Method Of Arrival: Ambulatory lk1 20:29 Acuity: ASHLEY 4 lk1 Triage Assessment: 20:31 General: Appears in no apparent distress. Behavior is calm, cooperative, appropriate lk1 for age. Pain: Complains of pain in right leg and left leg Pain currently is 7 out of 10 on a pain scale. Neuro: Level of Consciousness is awake, alert, obeys commands, Oriented to person, place, time, situation, Appropriate for age Gait is steady, Speech is normal, Facial symmetry appears normal. 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 - Social history:: Smoking status: Patient uses tobacco products, smokes one-half pack cigarettes per day. Screenin:15 Abuse screen: Denies threats or abuse. Denies injuries from another. Nutritional bs1 screening: No deficits noted. Tuberculosis screening: No symptoms or risk factors identified. Fall Risk None identified. Assessment: 21:15 General: Appears in no apparent distress. uncomfortable, Behavior is calm, cooperative. bs1 Pain: Denies pain. Neuro: Level of Consciousness is awake, alert, obeys commands, Oriented to person, place, time, situation, Appropriate for age Advertising Intern are equal bilaterally Moves all extremities. Gait is steady, Speech is normal, Facial symmetry appears normal, Pupils are PERRLA, Intact Seizure activity reported prior to arrival. Neuro: Seizure activity No seizure activity noted at this time. Cardiovascular: Denies chest pain, lightheadedness, palpitations, shortness of breath, Heart tones S1 S2 present Capillary refill < 3 seconds Patient's skin is warm and dry. Respiratory: Airway is patent Trachea midline Respiratory effort is even, unlabored, Respiratory pattern is regular, symmetrical, Breath sounds are clear bilaterally. GI: No deficits noted. No signs and/or symptoms were reported involving the gastrointestinal system. : No deficits noted. No signs and/or symptoms were reported regarding the genitourinary system. EENT: No deficits noted. No signs and/or symptoms were reported regarding the EENT system. Derm: Skin is intact, Skin is pink, warm \\T\\ dry. Musculoskeletal: Circulation, motion, and sensation intact. Capillary refill < 3 seconds, Range of motion: intact in all extremities. Vital Signs: 20:36 BP 129 / 76; Pulse 87; Resp 15; Temp 96.9(TE); Pulse Ox 98% on R/A; Weight 79.38 kg lk1 (R); Height 5 ft. 11 in. (180.34 cm) (R); Pain 7/10; 21:45 BP 107 / 76; Pulse 79; Resp 17; Temp 97.9(O); Pulse Ox 100% on R/A; Pain 0/10; bs1 20:36 Body Mass Index 24.41 (79.38 kg, 180.34 cm) lk1 Darcy Coma Score: 20:31 Eye Response: spontaneous(4). Verbal Response: oriented(5). Motor Response: obeys lk1 commands(6). Total: 15. ED Course: 20:13 Patient arrived in ED. al2 20:31 Triage completed. lk1 20:37 Arm band placed on right wrist. lk1 20:38 [facility]aciel[facility]-C [facility]. kb 20:38 Jayme Jaimes MD is Attending Physician. kb 21:24 Amy London, JOLANTA is Primary Nurse. bs1 21:30 Bed in low position. Call light in reach. Adult w/ patient. Seizure precautions bs1 initiated. Pulse ox on. NIBP on. 22:04 No provider procedures requiring assistance completed. Patient did not have IV access bs1 during this emergency room visit. Administered Medications: 21:31 Drug: Valium 5 mg Route: PO; bs1 22:04 Follow up: Response: No adverse reaction bs1 Outcome: 21:19 Discharge ordered by . shirley 22:05 Discharged to home ambulatory, with significant other. bs1 22:05 Condition: stable 22:05 Discharge instructions given to patient, Instructed on discharge instructions, follow up and referral plans. Demonstrated understanding of instructions, follow-up care. 22:05 Patient left the ED. bs1 Signatures: Graciela Salazar, SALLIE-C SALLIE-Roshni Munoz RN RN lk1 Amy London RN RN bs1 Liliana Hurley
--- NOTE | 2017-06-22 21:19 | EDPHYS ---
Physician Documentation [facility] Name: Tamy Bradshaw Age: 31 yrs Sex: Female : 1985 Arrival Date: 06/22/2017 Time: 20:13 Bed 15 Private MD: ED Physician Jayme Jaimes HPI: 06/22 21:21 This 31 yrs old Female presents to ER via Ambulatory with complaints of kb Seizure. 21:21 The patient presents after having a single isolated seizure. Character of seizure(s): kb Motor activity: generalized, shaking all over. Seizure onset: 1 hour(s) ago. Context: the seizure(s) was witnessed, by a significant other, boyfriend. Seizure Hx: Original onset: longstanding. Associated injury: The patient did not suffer any apparent associated injury. Current symptoms: Currently, the patient is not experiencing any symptoms, the patient feels back to baseline, no decreased level of consciousness, no confusion, no dysphasia, no headache, no paralysis, no visual changes. The patient has experienced similar episodes in the past, chronically. The patient has been recently seen at the [facility] Emergency Department, today, by me, for similar complaints pt left AMA earlier today . 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 States she has not been on meds for a few years because she hasn't had a neurologist since she moved here. Has been given prescriptions for keppra and topamax by ER doctors, but she can't afford them. States she can afford ativan and valium so she is here to get prescriptions for those to decrease her seizure threshold. . 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 - Social history:: Smoking status: Patient uses tobacco products, smokes one-half pack cigarettes per day. ROS: 21:21 Constitutional: Negative for fever, chills, and weight loss, Cardiovascular: Negative kb for chest pain, palpitations, and edema, Respiratory: Negative for shortness of breath, cough, wheezing, and pleuritic chest pain, Abdomen/GI: Negative for abdominal pain, nausea, vomiting, diarrhea, and constipation, Back: Negative for injury and pain, : Negative for injury, bleeding, discharge, and swelling, MS/Extremity: Negative for injury and deformity, Skin: Negative for injury, rash, and discoloration. 21:21 Neuro: Positive for seizure activity. Exam: 21:21 Constitutional: This is a well developed, well nourished patient who is awake, alert, kb and in no acute distress. Head/Face: Normocephalic, atraumatic. Eyes: Pupils equal round and reactive to light, extra-ocular motions intact. Lids and lashes normal. Conjunctiva and sclera are non-icteric and not injected. Cornea within normal limits. Periorbital areas with no swelling, redness, or edema. ENT: Nares patent. No nasal discharge, no septal abnormalities noted. Tympanic membranes are normal and external auditory canals are clear. Oropharynx with no redness, swelling, or masses, exudates, or evidence of obstruction, uvula midline. Mucous membranes moist. Neck: Trachea midline, no thyromegaly or masses palpated, and no cervical lymphadenopathy. Supple, full range of motion without nuchal rigidity, or vertebral point tenderness. No Meningismus. Chest/axilla: Normal chest wall appearance and motion. Nontender with no deformity. No lesions are appreciated. Cardiovascular: Regular rate and rhythm with a normal S1 and S2. No gallops, murmurs, or rubs. Normal PMI, no JVD. No pulse deficits. Respiratory: Lungs have equal breath sounds bilaterally, clear to auscultation and percussion. No rales, rhonchi or wheezes noted. No increased work of breathing, no retractions or nasal flaring. Abdomen/GI: Soft, non-tender, with normal bowel sounds. No distension or tympany. No guarding or rebound. No evidence of tenderness throughout. Skin: Warm, dry with normal turgor. Normal color with no rashes, no lesions, and no evidence of cellulitis. MS/ Extremity: Pulses equal, no cyanosis. Neurovascular intact. Full, normal range of motion. Neuro: Awake and alert, GCS 15, oriented to person, place, time, and situation. Cranial nerves II-XII grossly intact. Motor strength 5/5 in all extremities. Sensory grossly intact. Cerebellar exam normal. Normal gait. Vital Signs: 20:36 BP 129 / 76; Pulse 87; Resp 15; Temp 96.9(TE); Pulse Ox 98% on R/A; Weight 79.38 kg lk1 (R); Height 5 ft. 11 in. (180.34 cm) (R); Pain 7/10; 21:45 BP 107 / 76; Pulse 79; Resp 17; Temp 97.9(O); Pulse Ox 100% on R/A; Pain 0/10; bs1 20:36 Body Mass Index 24.41 (79.38 kg, 180.34 cm) lk1 Donnellson Coma Score: 20:31 Eye Response: spontaneous(4). Verbal Response: oriented(5). Motor Response: obeys lk1 commands(6). Total: 15. MDM: 20:38 Patient medically screened. kb 21:18 Data reviewed: vital signs, nurses notes. Data interpreted: Pulse oximetry: on room air kb is 98 %. Interpretation: normal. Counseling: I had a detailed discussion with the patient and/or guardian regarding: the historical points, exam findings, and any diagnostic results supporting the discharge/admit diagnosis, the need for outpatient follow up, a neurologist, to return to the emergency department if symptoms worsen or persist or if there are any questions or concerns that arise at home. 21:24 ED course: Discussed pt condition and medication requests with Dr Jaimes. Recommends kb giving prescription for Keppra only. . ED course: Pt states she does not want a prescription for Keppra because she can't afford it and it makes her seizures worse. Educated that she needs to follow up with a neurologist to get placed back on antiepileptic drugs. Verbal understanding received. Pt does not want any diagnostic testing done. States "I was told by a dr that I don't need to come to the ER every time I have a seizure as long as my vital signs are good. They are good now so I don't need anything done. I just wanted to get ativan or valium to take for the seizures.". Administered Medications: 21:31 Drug: Valium 5 mg Route: PO; bs1 22:04 Follow up: Response: No adverse reaction bs1 Disposition: 06/23 06:44 Co-signature as Attending Physician, Jayme Jaimes MD Available for consultation at ps1 all times. . Disposition: 06/22/17 21:19 Discharged to Home. Impression: Epilepsy and recurrent seizures. - Condition is Stable. - Discharge Instructions: Seizure, Adult, [id number]. - Medication Reconciliation Form, Thank You Letter, Antibiotic Education, Prescription Opioid Use form. - Follow up: Private Physician; When: 2 - 3 days; Reason: Recheck today's complaints, Continuance of care, Re-evaluation by your physician. Follow up: Emergency Department; When: As needed; Reason: Worsening of condition. Signatures: Graciela Salazar, AUTO BODY REPAIRER-C SALLIE-Roshni Munoz, RN RN lk1 Jayme Jaimes MD MD ps1 Amy London, RN RN bs1
[2017-06-22] MEDS ORDERED: DIAZEPAM 5 MG TABLET ONE (21:27)
[2017-06-22 22:12] VITALS: BP 107/76; TEMP 97.9; O2SAT 100
== END 2017-06-22 22:05 | disposition home or self-care (01) ==
LOC: ER 20:07
DX: G40.109 Localization-related (focal) (partial) symptomatic epilepsy and epileptic syndromes with simple partial seizures, not intractable, without status epilepticus (principal); Z91.14 Patient's other noncompliance with medication regimen
CPT/HCPCS: 99283

== ENCOUNTER 2017-07-25 18:29 | Emergency (ER) | payer SELFPAY ==
[2017-07-25 19:45] LABS: Absolute Lymphocytes (CBC) 2.2 K/uL (0.7-4.9); Absolute Monocytes 0.4 K/uL (0.1-1.3); Absolute Neutrophil 6.5 K/uL (1.8-8.0); Basophils % 1.1 % (0-1.3); Eosinophils % 2.1 % (0-4.4); Hematocrit 45.9 % (36.0-45.0); Lymphocytes % 23.1 % (15.3-44.8); MCH 30.3 pg (27.0-35.0); MCV 91.6 fL (80-100); Monocytes % 4.2 % (3.3-12.3); RBC Red Blood Cell Count 5.02 M/uL (3.86-4.86)
[2017-07-25 19:46] LABS: Protime INR 1.14
[2017-07-25 20:25] LABS: Bicarbonate 30 mEq/L (21-31); Glucose Level 109 mg/dL (65-120); Potassium 3.1 mEq/L (3.6-5.0); Sodium Level 138 mEq/L (135-145)
[2017-07-25 20:34] LABS: ALT/SGPT 17 IU/L (10-60); AST/SGOT 16 IU/L (10-42); Albumin 4.1 g/dL (3.2-5.5); Alkaline Phosphatase 60 IU/L (42-121); BUN Blood Urea Nitrogen 15 mg/dL (6-20); Bilirubin Total 0.3 mg/dL (0.3-1.2); Protein, Total 7.4 g/dL (6.0-8.3)
[2017-07-25 20:35] LABS: Alcohol Serum/Plasma < 10 mg/dl; Bilirubin Direct 0.1 mg/dL (0-0.2)
[2017-07-25 22:52] LABS: Barbiturates NEGATIVE; Benzodiazepines NEGATIVE; Cocaine NEGATIVE; Opiates NEGATIVE; Phencyclidine NEGATIVE; THC Cannibis NEGATIVE
[2017-07-25 23:01] LABS: METHAMPHETAM POSITIVE (NEGATIVE)
[2017-07-25 23:44] LABS: Urine Blood 2+ (NEG); Urine Glucose NEGATIVE (NEG); Urine Protein 1+ (NEG); Urine Specific Gravity >1.030 (1.005-1.030)
[2017-07-25] MEDS ORDERED: POTASSIUM 25 MEQ EFFERV TAB ONE (23:51)
--- NOTE | 2017-07-26 07:37 | EKG ---
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
[2017-07-27] MEDS ORDERED: IBUPROFEN 400 MG TAB ONE (16:21)
--- NOTE | 2017-07-27 19:30 | ER ---
Nurse's Notes [facility] Name: Tamy Bradshaw Age: 32 yrs Sex: Female : 1985 Arrival Date: 07/25/2017 Time: 18:31 Bed 7 Private MD: Diagnosis: Presentation: 07/25 18:35 Presenting complaint: Patient states: Pt reports she is going through a tough time ss right now with being homeless and not having custody of her children. Pt states, "I don't want to , but it would take me out of my situation.". Transition of care: patient was not received from another setting of care. Onset of symptoms is unknown. Risk Assessment: Do you want to hurt yourself or someone else? Patient reports desire/thoughts of hurting themselves or someone else. Provider notified. Initial Sepsis Screen: Does the patient meet any 2 criteria? No. Patient's initial sepsis screen is negative. Does the patient have a suspected source of infection? No. Patient's initial sepsis screen is negative. Care prior to arrival: None. 18:35 Method Of Arrival: Law Enforcement: Jo ROMAN 18:35 Acuity: ASHLEY 2 ss 18:35 Note Patient reports that her plan to hurt herself is to cut her wrists with a razor. ss LAST GREASER: 18:45 LMP 07/24/2017 hb Historical: - Allergies: 18:38 NKA; ss - PMHx: 18:38 Cholelithiasis; Seizures; ss - PSHx: 18:38 None; ss - Immunization history:: Adult Immunizations up to date. - Social history:: Smoking status: Patient uses tobacco products, smokes one pack cigarettes per day. - Ebola Screening: : Patient denies exposure to infectious person Patient denies travel to an Ebola-affected area in the 21 days before illness onset. Screenin:52 Abuse screen: Denies threats or abuse. Denies injuries from another. Nutritional hb screening: No deficits noted. Tuberculosis screening: No symptoms or risk factors identified. Fall Risk None identified. Assessment: 18:51 General: Appears in no apparent distress. Behavior is calm, cooperative. Pain: Denies hb pain. Neuro: Level of Consciousness is awake, alert, obeys commands, Oriented to person, place, time, situation, Pupils are PERRLA. Cardiovascular: Heart tones S1 S2 present Capillary refill < 3 seconds Patient's skin is warm and dry. Respiratory: Airway is patent Trachea midline Respiratory effort is even, unlabored, Respiratory pattern is regular, symmetrical, Breath sounds are clear bilaterally. GI: No signs and/or symptoms were reported involving the gastrointestinal system. : No signs and/or symptoms were reported regarding the genitourinary system. EENT: No signs and/or symptoms were reported regarding the EENT system. Derm: No signs and/or symptoms reported regarding the dermatologic system. Skin is intact, is healthy with good turgor, Skin is pink, warm \\T\\ dry. Musculoskeletal: No signs and/or symptoms reported regarding the musculoskeletal system. 19:38 Reassessment: Patient appears in no apparent distress at this time. No changes from [facility] previously documented assessment. 20:46 Reassessment: [facility] at bedside for evaluation. [facility] 07/26 01:42 Reassessment: Lisa with [facility] stated "the transition unit is full" there is [facility] no bed for pt at this time.. 03:54 Reassessment: pt appears to be sleeping, resp even and unlabored. report given to Pete Forrester RN and Blayne STOVER. 03:56 Reassessment: received patient from Charis. asleep and stable. rv 07:15 Reassessment: Patient appears in no apparent distress at this time. Resting with eyes hb closed, easily arouses to verbal stimuli. Respirations even and unlabored. Skin is pink, warm, and dry. Sitter at bedside. 09:15 Reassessment: Patient appears in no apparent distress at this time. No changes from hb previously documented assessment. Patient and/or family updated on plan of care and expected duration. Pain level reassessed. Sitter remains at bedside. 11:28 Reassessment: Patient appears in no apparent distress at this time. No changes from hb previously documented assessment. Patient and/or family updated on plan of care and expected duration. Pain level reassessed. Sitter remains at bedside. 13:24 Reassessment: Patient appears in no apparent distress at this time. No changes from hb previously documented assessment. Patient and/or family updated on plan of care and expected duration. Pain level reassessed. 17:30 Reassessment: Patient appears in no apparent distress at this time. No changes from hb previously documented assessment. Patient and/or family updated on plan of care and expected duration. Pain level reassessed. Sitter remains at bedside. 19:00 Reassessment: Patient appears in no apparent distress at this time. No changes from ak1 previously documented assessment. Patient and/or family updated on plan of care and expected duration. Pain level reassessed. 20:00 Reassessment: Patient appears in no apparent distress at this time. No changes from ak1 previously documented assessment. Patient and/or family updated on plan of care and expected duration. Pain level reassessed. turned TV on pt to watch. 21:35 Reassessment: Patient appears in no apparent distress at this time. No changes from ak1 previously documented assessment. Patient and/or family updated on plan of care and expected duration. Pain level reassessed. 22:15 Reassessment: Patient appears in no apparent distress at this time. No changes from ak1 previously documented assessment. Patient and/or family updated on plan of care and expected duration. Pain level reassessed. 23:00 Reassessment: Patient appears in no apparent distress at this time. No changes from ak1 previously documented assessment. Patient and/or family updated on plan of care and expected duration. Pain level reassessed. pt appears to be sleeping, resp even and unlabored. will continue to monitor. 07/27 00:15 Reassessment: Patient appears in no apparent distress at this time. No changes from ak1 previously documented assessment. Patient and/or family updated on plan of care and expected duration. Pain level reassessed. 01:22 Reassessment: Patient appears in no apparent distress at this time. No changes from ak1 previously documented assessment. Patient and/or family updated on plan of care and expected duration. Pain level reassessed. 02:18 Reassessment: Patient appears in no apparent distress at this time. No changes from ak1 previously documented assessment. Patient and/or family updated on plan of care and expected duration. Pain level reassessed. 03:27 Reassessment: Patient appears in no apparent distress at this time. No changes from ak1 previously documented assessment. Patient and/or family updated on plan of care and expected duration. Pain level reassessed. 04:23 Reassessment: Patient appears in no apparent distress at this time. No changes from ak1 previously documented assessment. Patient and/or family updated on plan of care and expected duration. Pain level reassessed. pt appears to be sleeping, resp even and unlabored. easy to arouse. 05:13 Reassessment: Patient appears in no apparent distress at this time. No changes from ak1 previously documented assessment. 06:49 Reassessment: Patient appears in no apparent distress at this time. No changes from ak1 previously documented assessment. 07:00 Reassessment: Patient appears in no apparent distress at this time. No changes from tw2 previously documented assessment. Patient and/or family updated on plan of care and expected duration. Pain level reassessed. JOLNATA Guajardo remains at bedside as sitter for this patient and will remain throughout the shift today. 07:01 Reassessment: report given Trinity Seth RN and Sunny Madden RN. ak1 07:15 Reassessment: pts belongings have been sent to security, checklist remains in pts chart.tw2 07:52 General: Appears in no apparent distress. Behavior is cooperative, appropriate for age. at4 Pain:. Pain: Denies pain. Neuro: No deficits noted. Level of Consciousness is awake, alert, obeys commands, Oriented to person, place, time, situation. Cardiovascular: Heart tones S1 S2 present Capillary refill < 3 seconds Patient's skin is warm and dry. Respiratory: Breath sounds are clear bilaterally. GI: Bowel sounds present X 4 quads. : No signs and/or symptoms were reported regarding the genitourinary system. EENT: No signs and/or symptoms were reported regarding the EENT system. Derm: Skin is intact, Skin is pink, warm \\T\\ dry. Musculoskeletal: No signs and/or symptoms reported regarding the musculoskeletal system. 09:52 Reassessment: No changes from previously documented assessment. at4 11:56 General: Behavior is calm, cooperative. Pain: Denies pain. Cardiovascular: Heart tones at4 S1 S2. Respiratory: Breath sounds are clear bilaterally. 14:33 Reassessment: No changes from previously documented assessment. at4 16:17 Pain: Complains of pain in Generalized pain 6/10 Pain currently is 6 out of 10 on a at4 pain scale. Quality of pain is described as aching, Pain began 30 min ago. Alleviated by medications, rest, Aggravated by increased activity, Noted to be restless, Current management is with Advil. 16:22 Neuro: No deficits noted. Level of Consciousness is awake, alert, obeys commands, at4 Oriented to person, place, time, situation. Cardiovascular: Heart tones S1 S2. Respiratory: Breath sounds are clear bilaterally. 19:19 General: Appears in no apparent distress. comfortable, Behavior is calm, cooperative. bb Neuro: Level of Consciousness is awake, alert, obeys commands, Oriented to person, place, time, situation, Speech is normal, pt denies suicidal ideations at this time states she is homeless but she does not need to be evaluated for any psychiatric problems. Pt states she wants her clothes so she can leave. Vital Signs: 07/25 18:45 BP 124 / 78; Pulse 77; Resp 16; Temp 98.1; Pulse Ox 100% on R/A; Pain 0/10; hb 23:35 BP 112 / 73; Pulse 74; Resp 18; Temp 98.8; Pulse Ox 99% on R/A; tl3 07/26 02:51 BP 103 / 67; Pulse 73; Resp 18; Pulse Ox 96% on R/A; Weight 77.11 kg (R); Height 5 ft. ak1 5 in. (165.10 cm); Pain 0/10; 07:15 BP 107 / 67; Pulse 69; Resp 16; Temp 98.6; Pulse Ox 98% on R/A; Pain 0/10; hb 11:00 BP 107 / 65; Pulse 66; Resp 16; Temp 97.6; Pulse Ox 97% on R/A; Pain 0/10; hb 15:00 BP 116 / 54; Pulse 70; Resp 18; Temp 97.8; Pulse Ox 100% on R/A; Pain 0/10; hb 18:30 BP 115 / 60; Pulse 71; Resp 15; Pulse Ox 100% on R/A; Pain 0/10; hb 20:30 BP 110 / 64; Pulse 65; Resp 18; Temp 97.8(TE); Pulse Ox 98% on R/A; Pain 0/10; ak1 07/27 00:14 BP 100 / 50; Pulse 65; Resp 16; Temp 97.6(TE); Pulse Ox 100% on R/A; Pain 0/10; ak1 04:23 BP 101 / 67; Pulse 68; Resp 16; Temp 98.2(TE); Pulse Ox 100% on R/A; Pain 0/10; ak1 07:50 BP 97 / 54; Pulse 68; Resp 16; Temp 97.4; Pulse Ox 98% ; at4 11:55 BP 106 / 59; Pulse 69; Resp 14; Temp 98.2; Pulse Ox 99% ; at4 16:09 BP 121 / 72; Pulse 82; Resp 16; Temp 97.8; Pulse Ox 100% ; Pain 6/10; at4 0604 02:51 Body Mass Index 28.29 (77.11 kg, 165.10 cm) ak1 ED Course: 07/25 18:31 Patient arrived in ED. hb 18:38 Triage completed. ss 18:38 Arm band placed on right wrist. ss 18:45 Safety Checks: Personal items have been removed. The door is open or patient has been hb placed in a hallway bed/chair. Sitter present at this time. 18:45 Patient is placed in psych hold. hb 18:52 Patient has correct armband on for positive identification. Placed in gown. Bed in low hb position. Call light in reach. Side rails up X 1. 18:54 Yunier Herman PA is PHCP. cp 18:54 Micheal Encarnacion MD is Attending Physician. cp 19:00 Safety Checks: Personal items have been removed. The door is open or patient has been ak1 placed in a hallway bed/chair. Sitter present at this time. 19:15 Safety Checks: Personal items have been removed. The door is open or patient has been ak1 placed in a hallway bed/chair. Sitter present at this time. 19:15 Initial lab(s) drawn, by me, sent to lab. EKG done, by ED staff, reviewed by Yunier Herman aa1 PA. Inserted saline lock: 20 gauge in left antecubital area, using aseptic technique. Blood collected. 19:30 Safety Checks: Personal items have been removed. The door is open or patient has been ak1 placed in a hallway bed/chair. Sitter present at this time. 19:32 Sylvia Cary, JOLANTA is Primary Nurse. tl3 19:33 Feliciano Druan MD is Attending Physician. cp 19:45 Safety Checks: Personal items have been removed. The door is open or patient has been ak1 placed in a hallway bed/chair. Sitter present at this time. 20:00 Safety Checks: Personal items have been removed. The door is open or patient has been ak1 placed in a hallway bed/chair. Sitter present at this time. 20:15 Safety Checks: Personal items have been removed. The door is open or patient has been ak1 placed in a hallway bed/chair. Sitter present at this time. 20:30 Safety Checks: Personal items have been removed. The door is open or patient has been ak1 placed in a hallway bed/chair. Sitter present at this time. 20:45 Safety Checks: Personal items have been removed. The door is open or patient has been ak1 placed in a hallway bed/chair. Sitter present at this time. 21:00 Safety Checks: Personal items have been removed. The door is open or patient has been ak1 placed in a hallway bed/chair. Sitter present at this time. 21:15 Safety Checks: Personal items have been removed. The door is open or patient has been ak1 placed in a hallway bed/chair. Sitter present at this time. 21:30 Safety Checks: Personal items have been removed. The door is open or patient has been ak1 placed in a hallway bed/chair. Sitter present at this time. 21:45 Safety Checks: Personal items have been removed. The door is open or patient has been ak1 placed in a hallway bed/chair. Sitter present at this time. 22:00 Safety Checks: Personal items have been removed. The door is open or patient has been ak1 placed in a hallway bed/chair. Sitter present at this time. 22:12 No provider procedures requiring assistance completed. ak1 22:15 Safety Checks: Personal items have been removed. The door is open or patient has been tl3 placed in a hallway bed/chair. Sitter present at this time. 22:30 Safety Checks: Personal items have been removed. The door is open or patient has been tl3 placed in a hallway bed/chair. Sitter present at this time. 22:45 Safety Checks: Personal items have been removed. The door is open or patient has been tl3 placed in a hallway bed/chair. Sitter present at this time. 23:00 Safety Checks: Personal items have been removed. The door is open or patient has been tl3 placed in a hallway bed/chair. Sitter present at this time. 23:15 Safety Checks: Personal items have been removed. The door is open or patient has been tl3 placed in a hallway bed/chair. Sitter present at this time. 23:30 Safety Checks: Personal items have been removed. The door is open or patient has been tl3 placed in a hallway bed/chair. Sitter present at this time. 23:45 Safety Checks: Personal items have been removed. The door is open or patient has been ak1 placed in a hallway bed/chair. Sitter present at this time. 07/26 00:00 Safety Checks: Personal items have been removed. The door is open or patient has been ak1 placed in a hallway bed/chair. Sitter present at this time. 00:15 Safety Checks: Personal items have been removed. The door is open or patient has been ak1 placed in a hallway bed/chair. Sitter present at this time. 00:30 Safety Checks: Personal items have been removed. The door is open or patient has been ak1 placed in a hallway bed/chair. Sitter present at this time. 00:45 Safety Checks: Personal items have been removed. The door is open or patient has been ak1 placed in a hallway bed/chair. Sitter present at this time. 01:04 Safety Checks: Personal items have been removed. The door is open or patient has been tl3 placed in a hallway bed/chair. Sitter present at this time. 01:15 Safety Checks: Personal items have been removed. The door is open or patient has been ak1 placed in a hallway bed/chair. Sitter present at this time. 01:30 Safety Checks: Personal items have been removed. The door is open or patient has been ak1 placed in a hallway bed/chair. Sitter present at this time. 01:45 Safety Checks: Personal items have been removed. The door is open or patient has been ak1 placed in a hallway bed/chair. Sitter present at this time. 02:00 Safety Checks: Personal items have been removed. The door is open or patient has been ak1 placed in a hallway bed/chair. Sitter present at this time. 02:15 Safety Checks: Personal items have been removed. The door is open or patient has been ak1 placed in a hallway bed/chair. Sitter present at this time. 02:30 Safety Checks: Personal items have been removed. The door is open or patient has been ak1 placed in a hallway bed/chair. Sitter present at this time. 02:45 Safety Checks: Personal items have been removed. The door is open or patient has been ak1 placed in a hallway bed/chair. Sitter present at this time. 03:00 Safety Checks: Personal items have been removed. The door is open or patient has been ak1 placed in a hallway bed/chair. Sitter present at this time. 03:15 Safety Checks: Personal items have been removed. The door is open or patient has been ak1 placed in a hallway bed/chair. Sitter present at this time. 03:30 Safety Checks: Personal items have been removed. The door is open or patient has been ak1 placed in a hallway bed/chair. Sitter present at this time. 03:45 Safety Checks: Personal items have been removed. The door is open or patient has been ak1 placed in a hallway bed/chair. Sitter present at this time. 04:00 Safety Checks: Personal items have been removed. The door is open or patient has been rv placed in a hallway bed/chair. There are no family/friend visitors at this time Sitter present at this time. 04:15 Safety Checks: Personal items have been removed. The door is open or patient has been rv placed in a hallway bed/chair. There are no family/friend visitors at this time Sitter present at this time. 04:30 Safety Checks: Personal items have been removed. The door is open or patient has been rv placed in a hallway bed/chair. There are no family/friend visitors at this time Sitter present at this time. 04:45 Safety Checks: Personal items have been removed. The door is open or patient has been rv placed in a hallway bed/chair. There are no family/friend visitors at this time Sitter present at this time. 05:00 Safety Checks: Personal items have been removed. The door is open or patient has been rv placed in a hallway bed/chair. There are no family/friend visitors at this time Sitter present at this time. 05:15 Safety Checks: Personal items have been removed. The door is open or patient has been rv placed in a hallway bed/chair. There are no family/friend visitors at this time Sitter present at this time. 05:30 Safety Checks: Personal items have been removed. The door is open or patient has been rv placed in a hallway bed/chair. There are no family/friend visitors at this time Sitter present at this time. Safety Checks: Personal items have been removed. The door is open or patient has been placed in a hallway bed/chair. There are no family/friend visitors at this time Sitter present at this time. 05:44 Safety Checks: Personal items have been removed. The door is open or patient has been rv placed in a hallway bed/chair. There are no family/friend visitors at this time Sitter present at this time. 06:00 Safety Checks: Personal items have been removed. The door is open or patient has been rv placed in a hallway bed/chair. There are no family/friend visitors at this time Sitter present at this time. 06:15 Safety Checks: Personal items have been removed. The door is open or patient has been rv placed in a hallway bed/chair. There are no family/friend visitors at this time Sitter present at this time. 06:30 Safety Checks: Personal items have been removed. The door is open or patient has been rv placed in a hallway bed/chair. There are no family/friend visitors at this time Sitter present at this time. 06:45 Safety Checks: Personal items have been removed. The door is open or patient has been rv placed in a hallway bed/chair. There are no family/friend visitors at this time Sitter present at this time. 07:00 Safety Checks: Personal items have been removed. The door is open or patient has been hb placed in a hallway bed/chair. There are no family/friend visitors at this time Sitter present at this time. 07:15 Safety Checks: Personal items have been removed. The door is open or patient has been hb placed in a hallway bed/chair. There are no family/friend visitors at this time Sitter present at this time. 07:30 Safety Checks: Personal items have been removed. The door is open or patient has been hb placed in a hallway bed/chair. There are no family/friend visitors at this time Sitter present at this time. 07:45 Safety Checks: Personal items have been removed. The door is open or patient has been hb placed in a hallway bed/chair. There are no family/friend visitors at this time Sitter present at this time. 08:00 Safety Checks: Personal items have been removed. The door is open or patient has been hb placed in a hallway bed/chair. There are no family/friend visitors at this time Sitter present at this time. 08:15 Safety Checks: Personal items have been removed. The door is open or patient has been ph placed in a hallway bed/chair. There are no family/friend visitors at this time Sitter present at this time. 08:30 Safety Checks: Personal items have been removed. The door is open or patient has been hb placed in a hallway bed/chair. There are no family/friend visitors at this time Sitter present at this time. 08:45 Safety Checks: Personal items have been removed. The door is open or patient has been hb placed in a hallway bed/chair. There are no family/friend visitors at this time Sitter present at this time. 09:00 Safety Checks: Personal items have been removed. The door is open or patient has been hb placed in a hallway bed/chair. There are no family/friend visitors at this time Sitter present at this time. 09:15 Safety Checks: Personal items have been removed. The door is open or patient has been hb placed in a hallway bed/chair. There are no family/friend visitors at this time Sitter present at this time. 09:30 Safety Checks: Personal items have been removed. The door is open or patient has been hb placed in a hallway bed/chair. There are no family/friend visitors at this time Sitter present at this time. 09:45 Safety Checks: Personal items have been removed. The door is open or patient has been hb placed in a hallway bed/chair. There are no family/friend visitors at this time Sitter present at this time. 10:00 Safety Checks: Personal items have been removed. The door is open or patient has been hb placed in a hallway bed/chair. There are no family/friend visitors at this time Sitter present at this time. 10:00 Safety Checks: Personal items have been removed. The door is open or patient has been hb placed in a hallway bed/chair. There are no family/friend visitors at this time Sitter present at this time. 10:15 Safety Checks: Personal items have been removed. The door is open or patient has been hb placed in a hallway bed/chair. There are no family/friend visitors at this time Sitter present at this time. 10:30 Safety Checks: Personal items have been removed. The door is open or patient has been hb placed in a hallway bed/chair. There are no family/friend visitors at this time Sitter present at this time. 10:45 Safety Checks: Personal items have been removed. The door is open or patient has been hb placed in a hallway bed/chair. There are no family/friend visitors at this time Sitter present at this time. 11:00 Safety Checks: Personal items have been removed. The door is open or patient has been hb placed in a hallway bed/chair. There are no family/friend visitors at this time Sitter present at this time. 11:15 Safety Checks: Personal items have been removed. The door is open or patient has been hb placed in a hallway bed/chair. There are no family/friend visitors at this time Sitter present at this time. 11:30 Safety Checks: Personal items have been removed. The door is open or patient has been hb placed in a hallway bed/chair. There are no family/friend visitors at this time Sitter present at this time. 11:45 Safety Checks: Personal items have been removed. The door is open or patient has been hb placed in a hallway bed/chair. There are no family/friend visitors at this time Sitter present at this time. 12:00 Safety Checks: Personal items have been removed. The door is open or patient has been hb placed in a hallway bed/chair. There are no family/friend visitors at this time Sitter present at this time. 12:15 Safety Checks: Personal items have been removed. The door is open or patient has been hb placed in a hallway bed/chair. There are no family/friend visitors at this time Sitter present at this time. 12:30 Safety Checks: Personal items have been removed. The door is open or patient has been hb placed in a hallway bed/chair. There are no family/friend visitors at this time Sitter present at this time. 12:45 Safety Checks: Personal items have been removed. The door is open or patient has been hb placed in a hallway bed/chair. There are no family/friend visitors at this time Sitter present at this time. 13:00 Safety Checks: Personal items have been removed. The door is open or patient has been hb placed in a hallway bed/chair. There are no family/friend visitors at this time Sitter present at this time. 13:15 Safety Checks: Personal items have been removed. The door is open or patient has been hb placed in a hallway bed/chair. There are no family/friend visitors at this time Sitter present at this time. 13:30 Safety Checks: Personal items have been removed. The door is open or patient has been hb placed in a hallway bed/chair. There are no family/friend visitors at this time Sitter present at this time. 13:45 Safety Checks: Personal items have been removed. The door is open or patient has been hb placed in a hallway bed/chair. There are no family/friend visitors at this time Sitter present at this time. 14:00 Safety Checks: Personal items have been removed. The door is open or patient has been hb placed in a hallway bed/chair. There are no family/friend visitors at this time Sitter present at this time. 14:15 Safety Checks: Personal items have been removed. The door is open or patient has been hb placed in a hallway bed/chair. There are no family/friend visitors at this time Sitter present at this time. 14:30 Safety Checks: Personal items have been removed. The door is open or patient has been hb placed in a hallway bed/chair. There are no family/friend visitors at this time Sitter present at this time. 14:45 Safety Checks: Personal items have been removed. The door is open or patient has been hb placed in a hallway bed/chair. There are no family/friend visitors at this time Sitter present at this time. 15:00 Safety Checks: Personal items have been removed. The door is open or patient has been hb placed in a hallway bed/chair. There are no family/friend visitors at this time Sitter present at this time. 15:15 Safety Checks: Personal items have been removed. The door is open or patient has been hb placed in a hallway bed/chair. There are no family/friend visitors at this time Sitter present at this time. 15:30 Safety Checks: Personal items have been removed. The door is open or patient has been hb placed in a hallway bed/chair. There are no family/friend visitors at this time Sitter present at this time. 15:45 Safety Checks: Personal items have been removed. The door is open or patient has been hb placed in a hallway bed/chair. There are no family/friend visitors at this time Sitter present at this time. 16:00 Safety Checks: Personal items have been removed. The door is open or patient has been hb placed in a hallway bed/chair. There are no family/friend visitors at this time Sitter present at this time. 16:15 Safety Checks: Personal items have been removed. The door is open or patient has been hb placed in a hallway bed/chair. There are no family/friend visitors at this time Sitter present at this time. 16:39 Primary Nurse role handed off by Sylvia Cary RN 16:39 Brooke Uribe RN is Primary Nurse. 17:30 Safety Checks: Personal items have been removed. The door is open or patient has been hb placed in a hallway bed/chair. There are no family/friend visitors at this time Sitter present at this time. 17:45 Safety Checks: Personal items have been removed. The door is open or patient has been hb placed in a hallway bed/chair. There are no family/friend visitors at this time Sitter present at this time. 18:00 Safety Checks: Personal items have been removed. The door is open or patient has been hb placed in a hallway bed/chair. There are no family/friend visitors at this time Sitter present at this time. 18:15 Safety Checks: Personal items have been removed. The door is open or patient has been hb placed in a hallway bed/chair. There are no family/friend visitors at this time Sitter present at this time. 18:30 Safety Checks: Personal items have been removed. The door is open or patient has been hb placed in a hallway bed/chair. There are no family/friend visitors at this time Sitter present at this time. 18:45 Safety Checks: Personal items have been removed. The door is open or patient has been hb placed in a hallway bed/chair. There are no family/friend visitors at this time Sitter present at this time. 19:00 Safety Checks: Personal items have been removed. The door is open or patient has been hb placed in a hallway bed/chair. There are no family/friend visitors at this time Sitter present at this time. 19:15 Safety Checks: Personal items have been removed. The door is open or patient has been hb placed in a hallway bed/chair. There are no family/friend visitors at this time Sitter present at this time. 19:30 Safety Checks: Personal items have been removed. The door is open or patient has been ak1 placed in a hallway bed/chair. There are no family/friend visitors at this time Sitter present at this time. 19:45 Safety Checks: Personal items have been removed. The door is open or patient has been ak1 placed in a hallway bed/chair. There are no family/friend visitors at this time Sitter present at this time. 20:00 Safety Checks: Personal items have been removed. The door is open or patient has been ak1 placed in a hallway bed/chair. There are no family/friend visitors at this time Sitter present at this time. 20:15 Safety Checks: Personal items have been removed. The door is open or patient has been ak1 placed in a hallway bed/chair. There are no family/friend visitors at this time Sitter present at this time. 20:23 Primary Nurse role handed off by Brooke Uribe RN rg2 20:30 Charis Cabrera RN is Primary Nurse. ak1 20:30 Safety Checks: Personal items have been removed. The door is open or patient has been ak1 placed in a hallway bed/chair. There are no family/friend visitors at this time Sitter present at this time. 20:45 Safety Checks: Personal items have been removed. The door is open or patient has been ak1 placed in a hallway bed/chair. There are no family/friend visitors at this time Sitter present at this time. 21:00 Safety Checks: Personal items have been removed. The door is open or patient has been ak1 placed in a hallway bed/chair. There are no family/friend visitors at this time Sitter present at this time. 21:15 Safety Checks: Personal items have been removed. The door is open or patient has been ak1 placed in a hallway bed/chair. There are no family/friend visitors at this time Sitter present at this time. 21:30 Safety Checks: Personal items have been removed. The door is open or patient has been ak1 placed in a hallway bed/chair. There are no family/friend visitors at this time Sitter present at this time. 21:45 Safety Checks: Personal items have been removed. The door is open or patient has been ak1 placed in a hallway bed/chair. There are no family/friend visitors at this time Sitter present at this time. 22:00 Safety Checks: Personal items have been removed. The door is open or patient has been ak1 placed in a hallway bed/chair. There are no family/friend visitors at this time Sitter present at this time. 22:15 Safety Checks: Personal items have been removed. The door is open or patient has been ak1 placed in a hallway bed/chair. There are no family/friend visitors at this time Sitter present at this time. 22:30 Safety Checks: Personal items have been removed. The door is open or patient has been ak1 placed in a hallway bed/chair. There are no family/friend visitors at this time Sitter present at this time. 22:45 Safety Checks: Personal items have been removed. The door is open or patient has been ak1 placed in a hallway bed/chair. There are no family/friend visitors at this time Sitter present at this time. 23:00 Safety Checks: Personal items have been removed. The door is open or patient has been ak1 placed in a hallway bed/chair. There are no family/friend visitors at this time Sitter present at this time. 23:15 Safety Checks: Personal items have been removed. The door is open or patient has been ak1 placed in a hallway bed/chair. There are no family/friend visitors at this time Sitter present at this time. 23:30 Safety Checks: Personal items have been removed. The door is open or patient has been ak1 placed in a hallway bed/chair. There are no family/friend visitors at this time Sitter present at this time. 23:45 Safety Checks: Personal items have been removed. The door is open or patient has been ak1 placed in a hallway bed/chair. There are no family/friend visitors at this time Sitter present at this time. 07/27 00:00 Safety Checks: Personal items have been removed. The door is open or patient has been ak1 placed in a hallway bed/chair. There are no family/friend visitors at this time Sitter present at this time. 00:15 Safety Checks: Personal items have been removed. The door is open or patient has been ak1 placed in a hallway bed/chair. There are no family/friend visitors at this time Sitter present at this time. 00:30 Safety Checks: Personal items have been removed. The door is open or patient has been ak1 placed in a hallway bed/chair. There are no family/friend visitors at this time Sitter present at this time. 00:45 Safety Checks: Personal items have been removed. The door is open or patient has been ak1 placed in a hallway bed/chair. There are no family/friend visitors at this time Sitter present at this time. 01:00 Safety Checks: Personal items have been removed. The door is open or patient has been ak1 placed in a hallway bed/chair. There are no family/friend visitors at this time Sitter present at this time. 01:15 Safety Checks: Personal items have been removed. The door is open or patient has been ak1 placed in a hallway bed/chair. There are no family/friend visitors at this time Sitter present at this time. 01:30 Safety Checks: Personal items have been removed. The door is open or patient has been ak1 placed in a hallway bed/chair. There are no family/friend visitors at this time Sitter present at this time. 01:45 Safety Checks: Personal items have been removed. The door is open or patient has been ak1 placed in a hallway bed/chair. There are no family/friend visitors at this time Sitter present at this time. 02:00 Safety Checks: Personal items have been removed. The door is open or patient has been ak1 placed in a hallway bed/chair. There are no family/friend visitors at this time Sitter present at this time. 02:15 Safety Checks: Personal items have been removed. The door is open or patient has been ak1 placed in a hallway bed/chair. There are no family/friend visitors at this time Sitter present at this time. 02:30 Safety Checks: Personal items have been removed. The door is open or patient has been ak1 placed in a hallway bed/chair. There are no family/friend visitors at this time Sitter present at this time. 02:45 Safety Checks: Personal items have been removed. The door is open or patient has been ak1 placed in a hallway bed/chair. There are no family/friend visitors at this time Sitter present at this time. 03:00 Safety Checks: Personal items have been removed. The door is open or patient has been ak1 placed in a hallway bed/chair. There are no family/friend visitors at this time Sitter present at this time. 03:15 Safety Checks: Personal items have been removed. The door is open or patient has been ak1 placed in a hallway bed/chair. There are no family/friend visitors at this time Sitter present at this time. 03:30 Safety Checks: Personal items have been removed. The door is open or patient has been ak1 placed in a hallway bed/chair. There are no family/friend visitors at this time Sitter present at this time. 03:45 Safety Checks: Personal items have been removed. The door is open or patient has been ak1 placed in a hallway bed/chair. There are no family/friend visitors at this time Sitter present at this time. 04:00 Safety Checks: Personal items have been removed. The door is open or patient has been ak1 placed in a hallway bed/chair. There are no family/friend visitors at this time Sitter present at this time. 04:15 Safety Checks: Personal items have been removed. The door is open or patient has been ak1 placed in a hallway bed/chair. There are no family/friend visitors at this time Sitter present at this time. 04:30 Safety Checks: Personal items have been removed. The door is open or patient has been ak1 placed in a hallway bed/chair. There are no family/friend visitors at this time Sitter present at this time. 04:45 Safety Checks: Personal items have been removed. The door is open or patient has been ak1 placed in a hallway bed/chair. There are no family/friend visitors at this time Sitter present at this time. 05:00 Safety Checks: Personal items have been removed. The door is open or patient has been ak1 placed in a hallway bed/chair. There are no family/friend visitors at this time Sitter present at this time. 05:15 Safety Checks: Personal items have been removed. The door is open or patient has been ak1 placed in a hallway bed/chair. There are no family/friend visitors at this time Sitter present at this time. 05:30 Safety Checks: Personal items have been removed. The door is open or patient has been ak1 placed in a hallway bed/chair. There are no family/friend visitors at this time Sitter present at this time. 05:45 Safety Checks: Personal items have been removed. The door is open or patient has been ak1 placed in a hallway bed/chair. There are no family/friend visitors at this time Sitter present at this time. 06:00 Safety Checks: Personal items have been removed. The door is open or patient has been ak1 placed in a hallway bed/chair. There are no family/friend visitors at this time Sitter present at this time. 06:15 Safety Checks: Personal items have been removed. The door is open or patient has been ak1 placed in a hallway bed/chair. There are no family/friend visitors at this time Sitter present at this time. 06:30 Safety Checks: Personal items have been removed. The door is open or patient has been ak1 placed in a hallway bed/chair. There are no family/friend visitors at this time Sitter present at this time. 06:45 Safety Checks: Personal items have been removed. The door is open or patient has been ak1 placed in a hallway bed/chair. There are no family/friend visitors at this time Sitter present at this time. 07:00 Safety Checks: Personal items have been removed. The door is open or patient has been tw2 placed in a hallway bed/chair. 07:00 No apparent distress. Appears to be sleeping. Safety Checks: Personal items have been tw2 removed. The door is open or patient has been placed in a hallway bed/chair. There are no family/friend visitors at this time Sitter present at this time. 07:08 Primary Nurse role handed off by Charis Cabrera RN tw2 07:08 Trinity Mcfadden RN is Primary Nurse. tw2 07:15 Safety Checks: Personal items have been removed. The door is open or patient has been at4 placed in a hallway bed/chair. There are no family/friend visitors at this time Sitter present at this time. 07:30 Safety Checks: Personal items have been removed. The door is open or patient has been at4 placed in a hallway bed/chair. Sitter present at this time. 07:45 Safety Checks: The door is open or patient has been placed in a hallway bed/chair. at4 There are no family/friend visitors at this time Sitter present at this time. 08:00 Safety Checks: The door is open or patient has been placed in a hallway bed/chair. at4 There are no family/friend visitors at this time Sitter present at this time. 08:15 Safety Checks: The door is open or patient has been placed in a hallway bed/chair. at4 There are no family/friend visitors at this time Sitter present at this time. 08:30 Safety Checks: The door is open or patient has been placed in a hallway bed/chair. at4 Sitter present at this time. 08:45 Safety Checks: The door is open or patient has been placed in a hallway bed/chair. at4 There are no family/friend visitors at this time Sitter present at this time. 09:00 Safety Checks: Personal items have been removed. The door is open or patient has been at4 placed in a hallway bed/chair. There are no family/friend visitors at this time Sitter present at this time. 09:15 Safety Checks: The door is open or patient has been placed in a hallway bed/chair. at4 There are no family/friend visitors at this time Sitter present at this time. 09:30 Safety Checks: The door is open or patient has been placed in a hallway bed/chair. at4 There are no family/friend visitors at this time Sitter present at this time. 09:45 Safety Checks: The door is open or patient has been placed in a hallway bed/chair. at4 There are no family/friend visitors at this time Sitter present at this time. 10:00 Safety Checks: The door is open or patient has been placed in a hallway bed/chair. at4 There are no family/friend visitors at this time Sitter present at this time. 10:15 Safety Checks: The door is open or patient has been placed in a hallway bed/chair. at4 There are no family/friend visitors at this time Sitter present at this time. 10:30 Safety Checks: The door is open or patient has been placed in a hallway bed/chair. at4 There are no family/friend visitors at this time Sitter present at this time. 10:45 Safety Checks: The door is open or patient has been placed in a hallway bed/chair. at4 There are no family/friend visitors at this time Sitter present at this time. 10:46 refaxed chart to [facility]. bd 11:00 Safety Checks: The door is open or patient has been placed in a hallway bed/chair. at4 There are no family/friend visitors at this time Sitter present at this time. 11:15 Safety Checks: The door is open or patient has been placed in a hallway bed/chair. at4 There are no family/friend visitors at this time Sitter present at this time. 11:30 Safety Checks: The door is open or patient has been placed in a hallway bed/chair. at4 There are no family/friend visitors at this time Sitter present at this time. 11:45 Safety Checks: The door is open or patient has been placed in a hallway bed/chair. at4 There are no family/friend visitors at this time Sitter present at this time. 12:00 Safety Checks: The door is open or patient has been placed in a hallway bed/chair. at4 There are no family/friend visitors at this time Sitter present at this time. 12:15 Safety Checks: The door is open or patient has been placed in a hallway bed/chair. at4 There are no family/friend visitors at this time Sitter present at this time. 12:30 Safety Checks: The door is open or patient has been placed in a hallway bed/chair. at4 There are no family/friend visitors at this time Sitter present at this time. 12:45 Safety Checks: The door is open or patient has been placed in a hallway bed/chair. at4 There are no family/friend visitors at this time Sitter present at this time. 13:00 Safety Checks: The door is open or patient has been placed in a hallway bed/chair. at4 There are no family/friend visitors at this time Sitter present at this time. 13:15 Safety Checks: The door is open or patient has been placed in a hallway bed/chair. at4 There are no family/friend visitors at this time Sitter present at this time. 13:30 Safety Checks: Personal items have been removed. The door is open or patient has been tw2 placed in a hallway bed/chair. There are no family/friend visitors at this time Sitter present at this time. 13:30 Safety Checks: The door is open or patient has been placed in a hallway bed/chair. at4 There are no family/friend visitors at this time Sitter present at this time. 13:45 Safety Checks: Personal items have been removed. The door is open or patient has been tw2 placed in a hallway bed/chair. There are no family/friend visitors at this time Sitter present at this time. 14:00 No apparent distress. Resting quietly. Safety Checks: Personal items have been removed. tw2 The door is open or patient has been placed in a hallway bed/chair. There are no family/friend visitors at this time Sitter present at this time. 14:15 Safety Checks: Personal items have been removed. The door is open or patient has been tw2 placed in a hallway bed/chair. There are no family/friend visitors at this time Sitter present at this time. 14:30 Safety Checks: Personal items have been removed. The door is open or patient has been tw2 placed in a hallway bed/chair. There are no family/friend visitors at this time Sitter present at this time. 14:45 Safety Checks: The door is open or patient has been placed in a hallway bed/chair. at4 There are no family/friend visitors at this time Sitter present at this time. 15:00 Safety Checks: The door is open or patient has been placed in a hallway bed/chair. at4 There are no family/friend visitors at this time Sitter present at this time. 15:15 Safety Checks: The door is open or patient has been placed in a hallway bed/chair. at4 There are no family/friend visitors at this time Sitter present at this time. 15:30 Appears to be sleeping. Safety Checks: The door is open or patient has been placed in a at4 hallway bed/chair. There are no family/friend visitors at this time Sitter present at this time. 15:45 Appears restless. Safety Checks: The door is open or patient has been placed in a at4 hallway bed/chair. There are no family/friend visitors at this time Sitter present at this time. 16:00 Safety Checks: The door is open or patient has been placed in a hallway bed/chair. at4 There are no family/friend visitors at this time Sitter present at this time. 16:15 Safety Checks: The door is open or patient has been placed in a hallway bed/chair. at4 There are no family/friend visitors at this time Sitter present at this time. 16:30 Appears to be sleeping. Safety Checks: The door is open or patient has been placed in a at4 hallway bed/chair. There are no family/friend visitors at this time Sitter present at this time. 16:45 Appears to be sleeping. Safety Checks: The door is open or patient has been placed in a at4 hallway bed/chair. There are no family/friend visitors at this time Sitter present at this time. 17:00 Appears to be sleeping. Safety Checks: The door is open or patient has been placed in a at4 hallway bed/chair. There are no family/friend visitors at this time Sitter present at this time. 17:15 Appears to be sleeping. Safety Checks: The door is open or patient has been placed in a at4 hallway bed/chair. There are no family/friend visitors at this time Sitter present at this time. 17:30 Appears to be sleeping. Safety Checks: The door is open or patient has been placed in a at4 hallway bed/chair. There are no family/friend visitors at this time Sitter present at this time. 17:45 Appears to be sleeping. Safety Checks: The door is open or patient has been placed in a at4 hallway bed/chair. There are no family/friend visitors at this time Sitter present at this time. 18:00 Appears to be sleeping. Safety Checks: The door is open or patient has been placed in a at4 hallway bed/chair. There are no family/friend visitors at this time Sitter present at this time. 18:15 Appears to be sleeping. Safety Checks: The door is open or patient has been placed in a at4 hallway bed/chair. There are no family/friend visitors at this time Sitter present at this time. 18:30 Appears to be sleeping. Safety Checks: The door is open or patient has been placed in a at4 hallway bed/chair. There are no family/friend visitors at this time Sitter present at this time. 18:45 No apparent distress. Safety Checks: The door is open or patient has been placed in a at4 hallway bed/chair. There are no family/friend visitors at this time Sitter present at this time. 19:00 Safety Checks: The door is open or patient has been placed in a hallway bed/chair. at4 There are no family/friend visitors at this time Sitter present at this time. 19:00 Report given to JOLANTA Campbell. tw2 Administered Medications: 07/25 23:54 Drug: Potassium Effervescent Tablet 50 mEq Route: PO; ak1 23:57 Follow up: Response: No adverse reaction ak1 07/27 16:21 Drug: Ibuprofen 800 mg Route: PO; tw2 Intake: 16:09 PO: 480ml; Total: 480ml. at4 Outcome: 19:29 Patient left the ED. bb Signatures: Zaida Guzman Rayburn rg2 Shannan Flores RN RN aa1 Maribel Melendrez RN RN bb Luisa Lan RN Charis Gottlieb RN JOLANTA ak1 Danelle Oconnell RN RN ph Page, Corey, PA PA cp Baxter, Heather RN Trinity Shepherd RN RN tw2 Sylvia Cary RN RN tl3 Blayne Prakash RN RN Ac Pantoja RN RN at4 Corrections: (The following items were deleted from the chart) 07/26 19:15 17:45 Safety Checks: Personal items have been removed. The door is open or patient has hb been placed in a hallway bed/chair. There are no family/friend visitors at this time Sitter present at this time. hb
--- NOTE | 2017-07-27 19:30 | EDPHYS ---
Physician Documentation [facility] Name: Tamy Bradshaw Age: 32 yrs Sex: Female : 1985 Arrival Date: 07/25/2017 Time: 18:31 Bed 7 Private MD: ED Physician Feliciano Duran HPI: 07/25 19:00 This 32 yrs old Female presents to ER via Law Enforcement with complaints of cp Suicidal Ideation. 19:00 The patient presents to the emergency department with suicide ideation, and the patient cp has a plan, to cut oneself and bleed. Onset: The symptoms/episode began/occurred today. Past psychiatric history: Psychiatric medications include: none, the patient has had a prior suicide gesture, the patient has a previous inpatient psychiatric history. Associated signs and symptoms: The patient has no apparent associated signs or symptoms. 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 - Social history:: Smoking status: Patient uses tobacco products, smokes one pack cigarettes per day. - Ebola Screening: : Patient denies exposure to infectious person Patient denies travel to an Ebola-affected area in the 21 days before illness onset. ROS: 19:05 Constitutional: Negative for body aches, chills, fever, poor PO intake. cp 19:05 Eyes: Negative for injury, pain, redness, and discharge. cp 19:05 ENT: Negative for drainage from ear(s), ear pain, sore throat, difficulty swallowing, difficulty handling secretions. 19:05 Cardiovascular: Negative for edema, palpitations. 19:05 Respiratory: Negative for cough, shortness of breath, wheezing. 19:05 Abdomen/GI: Negative for abdominal pain, nausea, vomiting, and diarrhea. 19:05 Skin: Negative for cellulitis, rash. 19:05 Neuro: Negative for altered mental status, headache, weakness. 19:05 Psych: Positive for suicidal ideation. 19:05 All other systems are negative. Exam: 19:15 Constitutional: The patient appears in no acute distress, alert, awake, non-toxic, well cp developed, well nourished. 19:15 Head/Face: Normocephalic, atraumatic. cp 19:15 Eyes: Periorbital structures: appear normal, Pupils: equal, round, and reactive to light and accomodation, Conjunctiva: normal, no exudate, no injection, Lids and lashes: appear normal, bilaterally. 19:15 ENT: External ear(s): are unremarkable, Nose: is normal, Mouth: Lips: moist, Oral mucosa: moist, Posterior pharynx: is normal, airway is patent, no erythema, no exudate. 19:15 Neck: ROM/movement: is normal, is supple, without pain, no range of motions limitations, no nuchal rigidity. 19:15 Chest/axilla: Inspection: normal, Palpation: is normal, no crepitus, no tenderness. 19:15 Cardiovascular: Rate: normal, Rhythm: regular. 19:15 Respiratory: the patient does not display signs of respiratory distress, Respirations: normal, no use of accessory muscles, no retractions, no splinting, no tachypnea, labored breathing, is not present, Breath sounds: are clear throughout, no decreased breath sounds, no stridor, no wheezing. 19:15 Abdomen/GI: Inspection: abdomen appears normal, Bowel sounds: active, all quadrants, Palpation: abdomen is soft and non-tender, in all quadrants, rebound tenderness, is not appreciated, voluntary guarding, is not appreciated, involuntary guarding, is not appreciated. 19:15 Back: pain, is absent, ROM is normal. 19:15 Skin: cellulitis, is not appreciated, no rash present. 19:15 Neuro: Orientation: to person, place \T\ time. Mentation: lucid, able to follow commands, Cerebellar function: is grossly normal, Motor: moves all fours, strength is normal, Sensation: no obvious gross deficits. 19:15 Psych: Behavior/mood is cooperative, Affect is calm, Patient having thoughts of suicide. Plan for suicide is cut wrists with razor Delusions/hallucinations are not present. 19:18 ECG was reviewed by the Attending Physician. cp Vital Signs: 18:45 BP 124 / 78; Pulse 77; Resp 16; Temp 98.1; Pulse Ox 100% on R/A; Pain 0/10; hb 23:35 BP 112 / 73; Pulse 74; Resp 18; Temp 98.8; Pulse Ox 99% on R/A; tl3 07/26 02:51 BP 103 / 67; Pulse 73; Resp 18; Pulse Ox 96% on R/A; Weight 77.11 kg (R); Height 5 ft. ak1 5 in. (165.10 cm); Pain 0/10; 07:15 BP 107 / 67; Pulse 69; Resp 16; Temp 98.6; Pulse Ox 98% on R/A; Pain 0/10; hb 11:00 BP 107 / 65; Pulse 66; Resp 16; Temp 97.6; Pulse Ox 97% on R/A; Pain 0/10; hb 15:00 BP 116 / 54; Pulse 70; Resp 18; Temp 97.8; Pulse Ox 100% on R/A; Pain 0/10; hb 18:30 BP 115 / 60; Pulse 71; Resp 15; Pulse Ox 100% on R/A; Pain 0/10; hb 20:30 BP 110 / 64; Pulse 65; Resp 18; Temp 97.8(TE); Pulse Ox 98% on R/A; Pain 0/10; ak1 07/27 00:14 BP 100 / 50; Pulse 65; Resp 16; Temp 97.6(TE); Pulse Ox 100% on R/A; Pain 0/10; ak1 04:23 BP 101 / 67; Pulse 68; Resp 16; Temp 98.2(TE); Pulse Ox 100% on R/A; Pain 0/10; ak1 07:50 BP 97 / 54; Pulse 68; Resp 16; Temp 97.4; Pulse Ox 98% ; at4 11:55 BP 106 / 59; Pulse 69; Resp 14; Temp 98.2; Pulse Ox 99% ; at4 16:09 BP 121 / 72; Pulse 82; Resp 16; Temp 97.8; Pulse Ox 100% ; Pain 6/10; at4 04 02:51 Body Mass Index 28.29 (77.11 kg, 165.10 cm) ak MDM: 07/25 18:54 Patient medically screened. cp 19:30 Differential diagnosis: drug withdrawal. acute psychotic break, depression, psychosis cp secondary to non-compliance. 23:50 Data reviewed: vital signs, nurses notes, lab test result(s), EKG. cp 07/25 18:58 Order name: Acetaminophen; Complete Time: 23:46 cp 06/03 18:58 Order name: Basic Metabolic Panel; Complete Time: 23:46 cp 06/03 23:46 Interpretation: Normal except: K 3.1; CRE 1.08; GFR 60. cp 06/ 18:58 Order name: CBC with Diff; Complete Time: 20:04 cp /03 20:04 Interpretation: Normal except: RBC 5.02; HGB 15.2; HCT 45.9. cp / 18:58 Order name: ETOH Level; Complete Time: 23:46 cp 07/25 18:58 Order name: Hepatic Function; Complete Time: 23:46 cp / 18:58 Order name: PT-INR; Complete Time: 20:04 cp / 20:04 Interpretation: PT 13.5; Reviewed. cp 07/25 18:58 Order name: Ptt, Activated; Complete Time: 20:04 cp 07/25 18:58 Order name: Salicylate; Complete Time: 23:46 cp 07/25 18:58 Order name: Urine Drug Screen; Complete Time: 23:46 cp 03 23:04 Order name: Urine Dipstick--Ancillary (enter results); Complete Time: 23:46 ms /03 23:04 Order name: Urine --Ancillary (enter results); Complete Time: 23:46 ms /04 10:18 Order name: Potassium; Complete Time: 07:52 bd 06/05 07:52 Interpretation: Within normal limits: K 4.0. cp 06/03 18:58 Order name: Urine Test (obtain specimen); Complete Time: 23:22 cp /03 18:58 Order name: EKG; Complete Time: 18:59 cp 07/25 18:58 Order name: EKG - Nurse/Tech; Complete Time: 19:19 cp 06/04 07:06 Order name: Diet Regular; Complete Time: 07:06 bd 06/04 12:07 Order name: Diet Regular; Complete Time: 12:07 hb /04 16:23 Order name: Diet Regular; Complete Time: 16:23 hb 06/05 07:17 Order name: Diet Regular; Complete Time: 07:18 rg2 07/27 12:27 Order name: Diet Regular; Complete Time: 12:27 bd 07/27 17:27 Order name: Diet Regular; Complete Time: 17:27 bd 07/25 18:58 Order name: IV Saline Lock; Complete Time: 19:19 cp 07/25 18:58 Order name: Labs collected and sent; Complete Time: 19:19 cp 07/25 18:58 Order name: Urine Dipstick-Ancillary (obtain specimen); Complete Time: 23:23 cp EC:18 Rate is 84 beats/min. Rhythm is regular. [place] interval is normal. QRS interval is normal. cp QT interval is normal. No ST changes noted. Interpreted by me. Reviewed by me. Administered Medications: 23:54 Drug: Potassium Effervescent Tablet 50 mEq Route: PO; ak1 23:57 Follow up: Response: No adverse reaction ak1 07/27 16:21 Drug: Ibuprofen 800 mg Route: PO; tw2 Disposition: 07/27/17 19:29 Patient left the facility after being seen by provider. - Patient left due to unknown. Signatures: Dispatcher [employer] Maribel Rodrigues RN RN bb Smirch, Shelby, RN RN ss Charis Cabrera RN RN ak1 Yunier Herman PA PA cp Brooke Uribe RN RN Trinity Mcfadden RN RN tw2 Corrections: (The following items were deleted from the chart) 07/26 20:00 19:45 CBC+H.LAB.BRZ ordered. EDMS EDMS 20:01 19:45 SALICYLATE+C.LAB.BRZ ordered. EDMS EDMS 20:01 19:45 HEPATIC FUNCTION+C.LAB.BRZ ordered. EDMS EDMS 20:01 19:45 BASIC METABOLIC PANEL+C.LAB.BRZ ordered. EDMS EDMS 20:01 19:45 ETHANOL+C.LAB.BRZ ordered. EDMS EDMS 20:01 19:45 ACETAMINOPHEN+C.LAB.BRZ ordered. EDMS EDMS 20:02 19:45 URINE DRUG SCREEN+CHEM UR.LAB.BRZ ordered. EDMS EDMS
[2017-07-27 20:41] VITALS: BP 121/72; TEMP 97.8; O2SAT 100
== END 2017-07-27 19:29 | disposition left against medical advice (07) ==
LOC: ER 18:29
DX: R45.851 Suicidal ideations (principal); F17.210 Nicotine dependence, cigarettes, uncomplicated
CPT/HCPCS: 36415; 80048; 80076; 80307; 80320; 80329; 81003; 81025; 85025; 85610; 85730; 93005; 99284

== ENCOUNTER 2020-07-20 16:18 | Emergency (ER) | payer SELFPAY ==
--- OUTSIDE RECORDS SUMMARY | 2020-07-20 16:20 | XMS REPORT | Continuity of Care Document ---
:1985 Author Organization [facility] t Address [address] [place] [address] Care Team Providers Name Role Phone Peter Huber Attending Clinician Problems This patient has no known problems. Allergies, Adverse Reactions, Alerts This patient has no known allergies or adverse reactions. Medications This patient has no known medications. Procedures This patient has no known procedures. Encounters Start End Encounter Admission Attending Care Care Encounter Source Date/Time Date/Time Type Type Clinicians Facility Department ID 2020-07-03 2020-07-03 Emergency [facility] [id number] 11:37:00 15:25:00 Quiana Shepherd [id number] [place] [id number] [place] [id number] Results This patient has no known results.
[2020-07-20 18:24] LABS: Urine Blood Negative (Negative); Urine Glucose Negative (Negative); Urine Protein 1+ (Negative); Urine Specific Gravity >=1.030 (1.005-1.030)
--- NOTE | 2020-07-20 18:29 | EDPHYS ---
Physician Documentation [facility] Name: Tamy Bradshaw Age: 34 yrs Sex: Female : 1985 Arrival Date: 07/20/2020 Time: 16:22 Bed 6 Private MD: Yunier Martines HPI: 07/20 18:16 This 34 yrs old Female presents to ER via Ambulatory with complaints of андрей Vaginal Itching. 18:16 The patient presents with perineal itching, urinary symptoms, dysuria. Onset: The андрей symptoms/episode began/occurred 2 day(s) ago. Modifying factors: The symptoms are alleviated by nothing, the symptoms are aggravated by nothing. Associated signs and symptoms: The patient has no apparent associated signs or symptoms. Severity of symptoms: At their worst the symptoms were mild, moderate, in the emergency department the symptoms are unchanged. The patient is sexually active, reportedly has a single partner. The patient's method of control includes IUD. 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 Flu vaccine is up to date. - Social history:: Smoking status: Patient reports the use of cigarette tobacco products, smokes one-half pack cigarettes per day. - Family history:: not pertinent. ROS: 18:16 Constitutional: Negative for fever, chills, and weight loss, Eyes: Negative for injury, андрей pain, redness, and discharge, ENT: Negative for injury, pain, and discharge, Neck: Negative for injury, pain, and swelling, Cardiovascular: Negative for chest pain, palpitations, and edema, Respiratory: Negative for shortness of breath, cough, wheezing, and pleuritic chest pain, Abdomen/GI: Negative for abdominal pain, nausea, vomiting, diarrhea, and constipation, Back: Negative for injury and pain, MS/Extremity: Negative for injury and deformity, Skin: Negative for injury, rash, and discoloration, Neuro: Negative for headache, weakness, numbness, tingling, and seizure, Psych: Negative for depression, anxiety, suicide ideation, homicidal ideation, and hallucinations, Allergy/Immunology: Negative for hives, rash, and allergies, Endocrine: Negative for neck swelling, polydipsia, polyuria, polyphagia, and marked weight changes, Hematologic/Lymphatic: Negative for swollen nodes, abnormal bleeding, and unusual bruising. 18:16 : Positive for pelvic pain, vaginal discharge, vaginal itching. Exam: 18:16 Constitutional: This is a well developed, well nourished patient who is awake, alert, андрей and in no acute distress. Head/Face: Normocephalic, atraumatic. Eyes: Pupils equal round and reactive to light, extra-ocular motions intact. Lids and lashes normal. Conjunctiva and sclera are non-icteric and not injected. Cornea within normal limits. Periorbital areas with no swelling, redness, or edema. ENT: Nares patent. No nasal discharge, no septal abnormalities noted. Tympanic membranes are normal and external auditory canals are clear. Oropharynx with no redness, swelling, or masses, exudates, or evidence of obstruction, uvula midline. Mucous membranes moist. Neck: Trachea midline, no thyromegaly or masses palpated, and no cervical lymphadenopathy. Supple, full range of motion without nuchal rigidity, or vertebral point tenderness. No Meningismus. Chest/axilla: Normal chest wall appearance and motion. Nontender with no deformity. No lesions are appreciated. Cardiovascular: Regular rate and rhythm with a normal S1 and S2. No gallops, murmurs, or rubs. Normal PMI, no JVD. No pulse deficits. Respiratory: Lungs have equal breath sounds bilaterally, clear to auscultation and percussion. No rales, rhonchi or wheezes noted. No increased work of breathing, no retractions or nasal flaring. Abdomen/GI: Soft, non-tender, with normal bowel sounds. No distension or tympany. No guarding or rebound. No evidence of tenderness throughout. Back: No spinal tenderness. No costovertebral tenderness. Full range of motion. Skin: Warm, dry with normal turgor. Normal color with no rashes, no lesions, and no evidence of cellulitis. MS/ Extremity: Pulses equal, no cyanosis. Neurovascular intact. Full, normal range of motion. Neuro: Awake and alert, GCS 15, oriented to person, place, time, and situation. Cranial nerves II-XII grossly intact. Motor strength 5/5 in all extremities. Sensory grossly intact. Cerebellar exam normal. Normal gait. Psych: Awake, alert, with orientation to person, place and time. Behavior, mood, and affect are within normal limits. Vital Signs: 16:41 BP 115 / 53; Pulse 100; Resp 16 S; Temp 98.2(TE); Pulse Ox 98% on R/A; Weight 87.54 kg ca1 (R); Height 5 ft. 11 in. (180.34 cm) (R); Pain 2/10; 18:30 BP 115 / 64; Pulse 65; Resp 17; Pulse Ox 100% ; bp 16:41 Body Mass Index 26.92 (87.54 kg, 180.34 cm) ca1 MDM: 18:04 Patient medically screened. [facility] 18:18 Differential diagnosis: raúl infection, cervicitis, pelvic inflammatory disease, андрей urinary tract infection, vaginosis. Data reviewed: vital signs, nurses notes, lab test result(s), urinalysis. Data interpreted: monitoring manager: rate is 100 beats/min, rhythm is normal sinus rhythm, Pulse oximetry: is not applicable for this patient encounter. Test interpretation: by ED physician or midlevel provider:. Counseling: I had a detailed discussion with the patient and/or guardian regarding: the historical points, exam findings, and any diagnostic results supporting the discharge/admit diagnosis, lab results, the need for outpatient follow up, for definitive care, an OB/Gyne specialist. 07/20 18:23 Order name: Urine Dipstick-Ancillary [facility] 07/20 18:24 Order name: Urine --Ancillary (enter results) eb 07/20 18:24 Order name: Urine --Ancillary [facility] 07/20 18:16 Order name: Urine Dipstick-Ancillary (obtain specimen); Complete Time: 18:47 андрей 07/20 18:16 Order name: Urine Test (obtain specimen); Complete Time: 18:47 андрей Administered Medications: 18:30 Drug: DiFLUcan (fluconazole) 200 mg Route: PO; bp 18:48 Follow up: Response: No adverse reaction bp 18:45 Drug: Cipro (ciprofloxacin) 500 mg Route: PO; bp 19:06 Follow up: Response: No adverse reaction bp Disposition: 07/20/20 18:28 Discharged to Home. Impression: Candidiasis of vulva and vagina, Urinary tract infection, site not specified. - Condition is Stable. - Discharge Instructions: Urinary Tract Infection, Adult, Vaginal Yeast Infection, Adult, Urinary Tract Infection, Adult, [id number], Vaginitis. - Prescriptions for Cipro 250 mg Oral Tablet - take 1 tablet by ORAL route every 12 hours; 10 tablet. Fluconazole 200 mg Oral Tablet - take 1 tablet by ORAL route once daily; 2 tablet. Topamax 200 mg Oral tablet - take 1 tablet by ORAL route 2 times per day; 60 tablet. - Medication Reconciliation Form, Thank You Letter, Antibiotic Education, Prescription Opioid Use form. - Follow up: Private Physician; When: 2 - 3 days; Reason: Recheck today's complaints, Continuance of care, Re-evaluation by your physician. Follow up: Rodrick Mcpherson MD; When: 2 - 3 days; Reason: Recheck today's complaints, Re-evaluation by your physician. - Problem is new. - Symptoms have improved. Signatures: Dispatcher [employer] EDYunier Swann MD MD cha Peltier, Brian, RN RN Roxanne tSevens RN RN ca1 Corrections: (The following items were deleted from the chart) 19:18 18:28 07/20/2020 18:28 Discharged to Home. Impression: Candidiasis of vulva and vagina; bp Urinary tract infection, site not specified. Condition is Stable. Forms are Medication Reconciliation Form, Thank You Letter, Antibiotic Education, Prescription Opioid Use. Follow up: Private Physician; When: 2 - 3 days; Reason: Recheck today's complaints, Continuance of care, Re-evaluation by your physician. Follow up: Rodrick Mcpherson; When: 2 - 3 days; Reason: Recheck today's complaints, Re-evaluation by your physician. Problem is new. Symptoms have improved. андрей
--- NOTE | 2020-07-20 18:29 | ER ---
Nurse's Notes [facility] Name: Tamy Bradshaw Age: 34 yrs Sex: Female : 1985 Arrival Date: 07/20/2020 Time: 16:22 Bed 6 Private MD: Diagnosis: Candidiasis of vulva and vagina;Urinary tract infection, site not specified Presentation: 07/20 16:41 Chief complaint: Patient states: Itching on vaginal area x 4 - 5 days. Took antifungal ca1 meds, no relief. Also reports, seizure x 2 episodes yesterday. 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 Coronavirus screen: Client denies travel out of the [place] in the last 14 days. At this time, the client does not indicate any symptoms associated with coronavirus-19. Ebola Screen: Patient negative for fever greater than or equal to 101.5 degrees Fahrenheit, and additional compatible Ebola Virus Disease symptoms Patient denies exposure to infectious person. Patient denies travel to an Ebola-affected area in the 21 days before illness onset. No symptoms or risks identified at this time. Initial Sepsis Screen: Does the patient meet any 2 criteria? No. Patient's initial sepsis screen is negative. Does the patient have a suspected source of infection? No. Patient's initial sepsis screen is negative. Risk Assessment: Do you want to hurt yourself or someone else? Patient reports no desire to harm self or others. Onset of symptoms was July 20, 2020. 16:41 Acuity: ASHLEY 4 ca1 16:41 Method Of Arrival: Ambulatory ca1 Triage Assessment: 17:28 General: Appears in no apparent distress. uncomfortable, Behavior is cooperative, bp appropriate for age, anxious. Pain: Complains of pain in pelvis. EENT: No deficits noted. Neuro: Level of Consciousness is awake, alert, obeys commands, Oriented to Appropriate for age. Cardiovascular: No deficits noted. Respiratory: No deficits noted. GI: No signs and/or symptoms were reported involving the gastrointestinal system. : Reports vaginal itching. Derm: No deficits noted. Musculoskeletal: No deficits noted. 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 Flu vaccine is up to date. - Social history:: Smoking status: Patient reports the use of cigarette tobacco products, smokes one-half pack cigarettes per day. - Family history:: not pertinent. Screenin:29 Abuse screen: Denies threats or abuse. Denies injuries from another. Nutritional bp screening: No deficits noted. Tuberculosis screening: No symptoms or risk factors identified. Fall Risk None identified. Assessment: 17:29 General: SEE TRIAGE NOTE. bp 18:30 Reassessment: No changes from previously documented assessment. Patient is alert, bp oriented x 3, equal unlabored respirations, skin warm/dry/pink. Patient states symptoms have improved. 19:17 Reassessment: PT D/C HOME AMBULATORY, DX WITH UTI AND VAGINAL CANDIDIASIS. bp Vital Signs: 16:41 BP 115 / 53; Pulse 100; Resp 16 S; Temp 98.2(TE); Pulse Ox 98% on R/A; Weight 87.54 kg ca1 (R); Height 5 ft. 11 in. (180.34 cm) (R); Pain 2/10; 18:30 BP 115 / 64; Pulse 65; Resp 17; Pulse Ox 100% ; bp 16:41 Body Mass Index 26.92 (87.54 kg, 180.34 cm) ca1 ED Course: 16:22 Patient arrived in ED. ds1 16:45 Triage completed. ca1 16:45 Arm band placed on right wrist. ca1 17:28 Pete Lo, RN is Primary Nurse. bp 17:29 Patient placed in an exam room, on a stretcher. ll1 17:29 Patient has correct armband on for positive identification. Bed in low position. Call bp light in reach. Side rails up X2. 18:03 Yunier Couch MD is Attending Physician. андрей 18:28 Rodrick Mcpherson MD is Referral Physician. андрей 19:17 No provider procedures requiring assistance completed. Patient did not have IV access bp during this emergency room visit. Administered Medications: 18:30 Drug: DiFLUcan (fluconazole) 200 mg Route: PO; bp 18:48 Follow up: Response: No adverse reaction bp 18:45 Drug: Cipro (ciprofloxacin) 500 mg Route: PO; bp 19:06 Follow up: Response: No adverse reaction bp Outcome: 18:28 Discharge ordered by . андрей 19:17 Discharged to home ambulatory. bp 19:17 Condition: stable 19:17 Discharge instructions given to patient, Instructed on discharge instructions, follow up and referral plans. medication usage, Demonstrated understanding of instructions, follow-up care, medications, Prescriptions given X 3. 19:18 Patient left the ED. bp Signatures: Yunier Couch MD MD cha Sanford, Anaid ds1 Pete Lo RN RN bp Roxanne Huynh RN RN ca1 Christiano Clayton RN RN ll1
[2020-07-20] MEDS ORDERED: FLUCONAZOLE 100 MG TAB ONE (18:49)
[2020-07-20] MEDS ORDERED: CIPROFLOXACIN HCL 500 MG TAB ONE (19:17)
[2020-07-20 19:43] VITALS: TEMP 98.2
[2020-07-20 19:45] VITALS: BP 115/64; O2SAT 100
== END 2020-07-20 19:18 | disposition home or self-care (01) ==
LOC: ER 16:18
DX: B37.3 Candidiasis of vulva and vagina (principal); N39.0 Urinary tract infection, site not specified; F17.210 Nicotine dependence, cigarettes, uncomplicated
CPT/HCPCS: 81003; 81025; 99283